=== PATIENT | female | born 1980 | race Caucasian/White ===

== ENCOUNTER 2018-07-18 01:23 | Outpatient (CLI) | payer BC, SELFPAY ==
--- NOTE | 2018-07-18 14:24 | DI.MAMMO_ITS ---
SYMPTOMS/DIAGNOSIS: RIGHT BREAST PALPABLE MASS 1 X 1 CM AT THE AREOLAR BORDER, 12 O'CLOCK, BORDERS ARE DEFINED, SMOOTH AND MASS IS MOBILE BILATERAL DIAGNOSTIC MAMMOGRAM: There is an area of breast asymmetry in the upper outer quadrant of the right breast with associated microcalcifications. Tomographic images show area of spiculation within this region. The skin appears unremarkable. There is a lymph node seen in the right axilla. No suspicious masses or microcalcifications are seen in the left breast. A right breast ultrasound was performed. In the upper outer quadrant at the 10 o'clock position 8 cm from the nipple, there is a lobulated hypoechoic mass measuring 3.4 x 1.9 x 4.2 cm. Internal echogenic foci are seen, which may reflect calcifications. There is some increased vascularity present. This corresponds to the asymmetric density on the mammogram. The palpable area of concern is at 12 o'clock 1 cm from the nipple. There is a hypoechoic vascular mass measuring 1.1 x 1.0 x 1.3 cm. It is just beneath the skin surface. There are lymph nodes seen in the right axilla. They are hypoechoic, the largest measures 1.7 cm. IMPRESSION: 1. A 4.2 cm hypoechoic lobulated mass with internal calcifications located in the upper outer quadrant at 10 o'clock 8 cm from the nipple. The finding is highly suspicious for malignancy. 2. Right axillary lymph nodes, the largest measuring 1.7 x 1.1 x 0.8 cm. 3. A 1.1 x 1.2 cm round hypoechoic subcutaneous mass in the right breast at the 12 o'clock position 1 cm from the nipple. This corresponds to the palpable abnormality. Category 5. Breast density D. The findings were discussed with the patient and the primary care team on the date of the examination.
== END 2018-07-18 01:43 ==
PROVIDERS: PCP Family Medicine; Visit Provider Nurse Practitioner Adult Health
DX: N63.11 Unspecified lump in the right breast, upper outer quadrant (principal); R59.0 Localized enlarged lymph nodes; N63.12 Unspecified lump in the right breast, upper inner quadrant
CPT/HCPCS: 76642; 77062; 77066; G0279

== ENCOUNTER 2018-09-09 06:31 | Inpatient (IN) | payer BC, SELFPAY ==
[2018-09-09] VITALS (9 sets, daily range): BP systolic 95–128; BP diastolic 62–80; PULSE 96–138; RESP 14–20; TEMP 36.6–39.5; O2SAT 95–100
--- NOTE | 2018-09-09 06:47 | ED.GENADUL_ITS ---
Discharge Plan Disposition Patient Disposition: [facility] INPATIENT Condition: Stable Discharge Details Chief Complaint: Fever Clinical Impression: Neutropenia Admit Date/Time: 09/09/18 08:25 Admit Provider: Gary Van Attending Provider: Gary Van Primary Care Provider: Chandan Young ED Provider: Jhon Russell Discharge Data Discharge Date/Time-TO BE ENTERED AT DEPARTURE: 09/09/18 09:40 Medical Decision Making <Jamal Rodriguez MD - Last Filed: 09/10/18 09:17> 38 yo female with hx of breast cancer who underwent her first chemotherapy 9 days ago comes in after she was up all night with subjective fevers and sweats, did not have a thermometer to check her temp at home. She is noted to have clammy skin on exam, fever here less than 100.4 orally. She is speaking in full sentences in no distress on exam. She has had a dry cough and intermittent nasuea with vomit along with diarrhea. No abdominal tenderness, no rashes per pt. She is noted to have a ulcer on the tip of her tongue she states has been present since chemotherapy and was told it was likely due to her chemotherapy. Given her chemotherapy she is at risk for neutropenic fever, will obtain cultures and lab work and also obtain chest xray. No severe headache or neck stiffness/menigismus so doubt animal chiropractor infection at this time pt remains stable, does have some red cells and few bacteria in her urine, she denies any symptoms of a uti however such as burning or frequency. Awaiting remainder of labs, flu test is negative. labs show ANC of 0.03 per the lab. She remains stable, still no fever here, cxr still pending. Will consult with oncology how they would like us to manage her neutropenia with only subjective fevers at home. Will sign her out pending oncology consult and xray results Differential Diagnosis neutropenic fever, viral illness, uti Medical Records Medical records reviewed: Yes I reviewed the patient's medical records. Lab Data Lab results reviewed: Yes I reviewed the patient's lab results. <Jhon Russell MD - Last Filed: 09/09/18 08:26> Received signout from Dr. Rodriguez. Patient remained stable and subjectively better with fluids, acetaminophen. She has mild hyponatremia, hypokalemia, mild worsening creatinine from 1.0-1.2. Following 1 L fluid, electrolyte supplementation, she clinically is improving. Neutropenia is present with ANC of 0.14. Chest x-ray unremarkable with left anterior chest port in place. Urine unremarkable Reviewed laboratories and clinical presentation with on-call oncology at [facility], Dr King. She recommends admission for observation with cefepime 2g q8h, medical management, and recheck labs in am. Lab Data Lab results reviewed: Yes I reviewed the patient's lab results. Laboratory Results - last 24 hr 09/09/18 09/09/18 09/09/18 06:55 07:06 07:06 Sodium 131 L Potassium 3.1 L Chloride 96 L Carbon Dioxide 23.1 Anion Gap 11.9 H BUN 7 Creatinine 1.23 H Estimated GFR/1.73 m2 49.40 Glucose 113 H Lactate Calcium 8.8 Magnesium 1.5 L Total Bilirubin 1.8 H AST 39 H ALT 76 Alkaline Phosphatase 89 Total Protein 7.6 Albumin 3.2 L Serum HCG, Qual Negative Urine Color Yellow Urine Clarity Sl cloudy Urine pH 5.5 Ur Specific [place] 1.020 Urine Protein 100 H Urine Ketones Negative Urine Blood Large H Urine Nitrite Negative Urine Bilirubin Negative Urine Urobilinogen 0.2 Ur Leukocyte Esterase Negative Urine RBC 20-50 H Urine WBC 3-5 Ur Epithelial Cells Rare Urine Crystals Moderate amorphous Urine Bacteria Few Urine Casts 10-20 coarsegranular Urine Mucus Moderate Urine Other Few renal Ur Culture Indicated? Yes Urine Glucose Negative 09/09/18 07:06 Sodium Potassium Chloride Carbon Dioxide Anion Gap BUN Creatinine Estimated GFR/1.73 m2 Glucose Lactate 1.0 Calcium Magnesium Total Bilirubin AST ALT Alkaline Phosphatase Total Protein Albumin Serum HCG, Qual Urine Color Urine Clarity Urine pH Ur Specific [place] Urine Protein Urine Ketones Urine Blood Urine Nitrite Urine Bilirubin Urine Urobilinogen Ur Leukocyte Esterase Urine RBC Urine WBC Ur Epithelial Cells Urine Crystals Urine Bacteria Urine Casts Urine Mucus Urine Other Ur Culture Indicated? Urine Glucose HPI <Jamal Rodriguez MD - Last Filed: 09/10/18 09:17> General Mode of arrival: ambulatory . Date/Time Provider Initiated Documentation: 09/09/18 06:32 . Limitations to Documentation: no limitations . Information obtained by: patient . History of Present Illness 38 year old F presents to the emergency department with the chief complaint of fevers/chills, described as moderate, Quality is described as burning, Patient started experiencing this day(s) (1) and it has been constant. No relieving factors improve symptom(s), No exacerbating factors reported . Patient notes cough. Patient did receive the following treatments prior to arrival, none Related Data Home Medications Medication Instructions Recorded Confirmed ibuprofen 800 mg PO TID PRN PRN #20 tab 06/14/17 09/09/18 rizatriptan [Maxalt] 5 mg PO ONCE #6 tab-cap MDD 10mg 09/14/17 09/09/18 triamcinolone acetonide 0.1 % 1 applic TOPICAL BID PRN #80 gm 06/08/18 09/09/18 topical cream ibuprofen [Advil] 200 mg PO PRN PRN 09/09/18 09/09/18 magnesium oxide 500 mg PO PRN PRN 09/09/18 09/09/18 Previous Rx's Medication Instructions Recorded ibuprofen 800 mg PO TID PRN PRN #20 tab 06/14/17 rizatriptan [Maxalt] 5 mg PO ONCE #6 tab-cap MDD 10mg 09/14/17 triamcinolone acetonide 0.1 % 1 applic TOPICAL BID PRN #80 gm 06/08/18 topical cream Allergies Allergy/AdvReac Type Severity Reaction Status Date / Time No Known Allergies Allergy Unverified 09/09/18 06:50 Review of Systems <Jamal Rodriguez MD - Last Filed: 09/10/18 09:17> Review of Systems All systems reviewed & are unremarkable except as noted in HPI and below Cardiovascular Denies chest pain and Denies dyspnea Respiratory Denies dyspnea Gastrointestinal Denies abdominal pain Musculoskeletal Denies joint swelling Integumentary/Breasts Denies rash PFSH <Jamal Rodriguez MD - Last Filed: 09/10/18 09:17> Family History Mother Mental disorder Father No problems noted. Sister No problems noted. Brother No problems noted. Grandfather No problems noted. Grandfather No problems noted. Grandmother No problems noted. Grandmother No problems noted. Social History Smoking/Tobacco Use Status: Never Drug use: Never Do you feel safe at home: Yes Do you feel safe in your relationship?: Yes Additional Social history: Patient is single and without children. Denies tobacco or ETOH use. Also denies any illicit drug use. Exam <Jamal Rodriguez MD - Last Filed: 09/10/18 09:17> Const General: no acute distress Orientation: alert HENMT Head: normal to inspection Ears: external ears normal General nose exam: external nose normal Mouth: moist mucous membranes Eyes General: appearance normal, both eyes and all related structures Neck Neck: normal visual inspection Resp Effort & Inspection: normal respiratory effort and able to speak in complete sentences Cardio Rate: tachycardic Skin General skin exam: no rashes or lesions noted Neuro General: alert and oriented x3 Extrem General: normal to inspection Psych Mental Status: mental status grossly normal Course <Jamal Rodriguez MD - Last Filed: 09/10/18 09:17> Lab/Test Results Lab/Test Results: 09/09/18 06:39 Blood Blood Culture - Pending 09/09/18 06:39 Blood Blood Culture - Pending Sign Out <Jamal Rodriguez MD - Last Filed: 09/10/18 09:17> Sign Out Data: Sign Out Comment: follow up on oncology recs and xray results Last updated by Jamal Rodriugez MD at 09/09/18 07:54
[2018-09-09 07:06] LABS: Bilirubin Negative (Negative); Blood Large (Negative); Clarity Sl Cloudy; Glucose Negative (Negative); Ketones Negative (Negative); Leukocyte Esterase Negative (Negative); Nitrite Negative (Negative); Urobilinogen 0.2 EU/dL (Up TO 0.2); pH 5.5 (5-8)
[2018-09-09 07:20] LABS: Abs Immature Grans 0.02 k/cumm (0.0-0.09); HCT 36.1 % (36.0-46.0); HGB 12.5 g/dL (12.0-15.5); Mean Corp. HGB Concentration 34.6 g/dL (32.0-36.0); Mean Corpuscular Hemoglobin 29.4 pg (27.0-33.0); Mean Corpuscular Volume 84.9 fL (80-95); Mean Platelet Volume 10.4 fL (8.0-11.0); Platelet Count 112 x1000/uL (130-400); RBC 4.25 m/cumm (4.00-5.20); RBC Distribution Width 11.7 % (11.7-14.6); White Blood Cell Count 2.37 k/cumm (4.4-10.8)
[2018-09-09 07:30] LABS: Bacteria Few HPF (Negative); Crystals Moderate Amorphous HPF (Negative); Epithelial Cells Rare HPF (Negative); Mucus Moderate (Negative); Other Cells Few Renal (Negative); RBC 20-50 (0-2)
[2018-09-09] MEDS: Normal Saline 1,000 ML 1000 ML IV (07:31)
[2018-09-09] MEDS: Ondansetron 4 MG/2 ML VIAL IVP ×2 (07:31→23:57)
[2018-09-09 07:32] LABS: ALT 76 U/L (12-78); AST 39 U/L (15-37); Albumin 3.2 g/dL (3.4-5.0); Alkaline Phosphatase 89 U/L (46-116); Anion Gap 11.9 mmol/L (3-11); BUN 7 mg/dL (7-18); Bilirubin, Total 1.8 mg/dL (0.2-1.0); CO2 23.1 mmol/L (21.0-32.0); CREATININE 1.23 mg/dL (0.55-1.02); Calcium 8.8 mg/dL (8.5-10.1); Chloride 96 mmol/L (98-107); Glucose 113 mg/dL (70-100); Magnesium 1.5 mg/dL (1.8-2.4); Potassium 3.1 mmol/L (3.5-5.1); Sodium 131 mmol/L (136-145); Total Protein 7.6 g/dL (6.4-8.2)
[2018-09-09 07:32] LABS: C & S Indicated? Yes
[2018-09-09 07:54] LABS: HCG Qual (Serum) Negative
--- NOTE | 2018-09-09 08:01 | DI.RAD_ITS ---
SYMPTOMS/DIAGNOSIS: COUGH, FEVER CHEST: Frontal and lateral views. The heart size and pulmonary vasculature are within normal limits. The tip of the indwelling central venous catheter is in good position in the superior vena cava. The lungs are clear. No effusions or pneumothoraces are identified. There is an S type scoliotic curvature of the thoracolumbar spine. IMPRESSION: No acute pulmonary process.
[2018-09-09] MEDS: MAGNESIUM SULFATE 1 GM/100 ML BAG IVPB (08:05)
[2018-09-09] MEDS: Potassium Chloride 20 MEQ TABCR 40 MEQ PO (08:06)
[2018-09-09 08:09] LABS: Absolute Lymphocyte Count 1.14 k/cumm (1.2-3.4); Absolute Monocyte Count 1.09 k/cumm (0.11-0.7); Absolute Neutrophil Count 0.14 k/cumm (1.2-6.7); Atypical Lymphocytes % 28
[2018-09-09 08:10] LABS: Diff Comment Manual Differential; RBC Morphology Normal
--- NOTE | 2018-09-09 08:48 | DI.VRAD_ITS ---
EXAM: XR Chest, 2 Views EXAM DATE/TIME: 09/09/2018 6:40 AM CLINICAL HISTORY: 38 years old, female; Signs and symptoms; Cough and fever TECHNIQUE: Imaging protocol: XR of the chest, 2 views. COMPARISON: No relevant prior studies available. FINDINGS: Tubes, catheters and devices: Left-sided indwelling catheter noted with tip in SVC Lungs: Unremarkable. No consolidation. Pleural space: Unremarkable. No pleural effusion. No pneumothorax. Heart/Mediastinum: Unremarkable. No cardiomegaly. Bones/joints: Unremarkable. IMPRESSION: No acute findings Dictated and Authenticated by: Veto Veras MD. Ordering:VANESA Berry MD
[2018-09-09] MEDS: CEFEPIME 2 GM in Normal Saline 100 ML IVPB ×3 (09:16→23:56)
[2018-09-09] MEDS: Normal Saline Flush 10 ML SYR IVP (09:47)
--- NOTE | 2018-09-09 09:47 | PHARADMIT ---
Admission Pharmacy Clinical Review NEUTRAPENIC FEVER ( day#9 post chemo at [facility] [place]) Code Status Full Code Current Weight Wgt-73.5 kg Renally Cleared and Narrow Therapeutic Index Meds CrCl~ 54.6 mL/min Meds-OK QTc Value / Action Taken NONE CURRENT BP Control, Fever BP-97/62 Tmax- 36.8C Electrolytes reviewed Na- 131 K+3.1 Mag-1.5 DVT Prophylaxis Lovenox 40mg Opiate Usage / Scheduled Bowel Regimen Ordered No Yes Plt/SCr for Heparin / Enoxaparin Plts- 112 SCr-1.23 INR for Warfarin na H/H stable, WBC/Bands H&H- 102.5/36.1 WBC- 2.37 ANC- 0.14 Antibiotic appropriateness Cefepime Cultures and Sensitivities Blood, Urine -pending Flu-neg Surgical ABX d/c within 24 hr NA DM control / Insulin Dosing BG- 113 Heart Failure (Check EF%) (CARLA's, B-Block, Diuretics) none IV to PO Switch No Home Meds Reviewed Yes Home Meds Not Ordered Ibuprofen, TAC, Maxlt MagOx Comments
[2018-09-09] MEDS: Enoxaparin 40 MG/0.4 ML SYR SC (10:16)
[2018-09-09] MEDS: Normal Saline 1,000 ML 125 ML IV ×2 (10:16→18:39)
--- NOTE | 2018-09-09 13:10 | W.PM.HP.N ---
Date of service: 09/09/18 Time of Service: 13:12 Assessment and Plan (1) Neutropenic fever: Current visit: Yes Status: Acute Although afebrile currently, history concordant with fevers and chills at home, with neutropenia noted by labs (ANC 0.14). Port examined and without obvious source of infection. Urinalysis and CXR appear unremarkable. Patient also with reported diarrhea that may be related to recent initiation of chemotherapy. Monitor blood cultures and check stool studies. Will initiate Cefepime, hydrate, and monitor closely with daily labs. Discussed with Oncology at [facility] [place] who recommends holding off on G-CSF for now. (2) HER2-positive carcinoma of right breast: Current visit: Yes Status: Acute Reported ER +/[place] +/HER2 + right sided Bread Ca, s/p lumpectomy with + LN's. Currently received 1st cycle of combination Taxotere, Carboplatin, Herceptin, and Perjeta for a planned 6 cycles of chemotherapy. Follows at [facility] [place]. (3) DVT prophylaxis: Current visit: Yes Status: Acute SC Lovenox. History of Present Illness Chief Complaint: Fever, Chills Narrative: Very pleasant but unfortunate 38-year-old woman with recently diagnosed breast cancer, initiated on chemotherapy 9 days ago, admitted from [facility] Emergency Department on 09/09 with a diagnosis of neutropenic fever. Ms. Cuello has a past medical history significant for a recently diagnosed ER +/[place] +/HER 2 + right-sided breast CA, with self-reported lumpectomy and lymph node dissection with positive lymph nodes. The patient has since had a port placed, and has initiated chemotherapy with Taxotere, Carboplatin, Herceptin, and Perjeta every 3 weeks for planned 6 cycles. She was initiated on chemotherapy 9 days ago. She reports onset of subjective fevers overnight, with significant distress that included diffuse diaphoresis and subjective chills. She also reports concurrent diarrhea that started approximately 2 days ago. Upon presentation to the ED she was not noted to be febrile, but was neutropenic on labs. Her CXR and urinalysis were negative, and no focal source of infection was found. Influenza was also checked and negative. She was admitted for further evaluation and treatment. Review of Systems Review of Systems All systems reviewed & are unremarkable except as noted in HPI and below PFSH Family History Mother Mental disorder Father No problems noted. Sister No problems noted. Brother No problems noted. Grandfather No problems noted. Grandfather No problems noted. Grandmother No problems noted. Grandmother No problems noted. Social History Smoking/Tobacco Use Status: Never Drug use: Never Do you feel safe at home: Yes Do you feel safe in your relationship?: Yes Additional Social history: Patient is single and without children. Denies tobacco or ETOH use. Also denies any illicit drug use. Meds Home Medications Medication Instructions Recorded Confirmed Type ibuprofen 800 mg PO TID PRN PRN #20 tab 06/14/17 09/09/18 Rx rizatriptan [Maxalt] 5 mg PO ONCE #6 tab-cap MDD 10mg 09/14/17 09/09/18 Rx triamcinolone acetonide 0.1 % 1 applic TOPICAL BID PRN #80 gm 06/08/18 09/09/18 Rx topical cream ibuprofen [Advil] 200 mg PO PRN PRN 09/09/18 09/09/18 History magnesium oxide 500 mg PO PRN PRN 09/09/18 09/09/18 History Allergies Allergy/AdvReac Type Severity Reaction Status Date / Time No Known Allergies Allergy Unverified 09/09/18 06:50 Exam Narrative Exam Narrative: General: Patient appears uncomfortable and ill, but not toxic. AAOX3. Neck: Supple Skin: Port noted left upper chest. Minimal surrounding edema with steri-strips still in place, but no evidence of induration, underlying fluctuance, or surrounding cellulitic changes. No drainage. CV: Regular, tachycardic, S1S2, No rubs, murmurs, or gallops. Pulmonary: Clear to auscultation bilaterally, no crackles, wheezing, or rhonchi Abdomen: + Bowel Sounds, soft, nontender, nondistended Vascular: No lower extremity edema Neurologic: CN II-XII grossly intact. No focal deficits. Psych: Normal mood and affect. Results Imaging Chest x-ray: report reviewed and image reviewed Additional studies: Exam(s) EXAM: XR Chest, 2 Views EXAM DATE/TIME: 09/09/2018 6:40 AM CLINICAL HISTORY: 38 years old, female; Signs and symptoms; Cough and fever TECHNIQUE: Imaging protocol: XR of the chest, 2 views. COMPARISON: No relevant prior studies available. FINDINGS: Tubes, catheters and devices: Left-sided indwelling catheter noted with tip in SVC Lungs: Unremarkable. No consolidation. Pleural space: Unremarkable. No pleural effusion. No pneumothorax. Heart/Mediastinum: Unremarkable. No cardiomegaly. Bones/joints: Unremarkable. IMPRESSION: No acute findings Labs : 09/09/18 07:06 09/09/18 07:06 Laboratory Results - last 24 hr 09/09/18 09/09/18 09/09/18 06:55 07:06 07:06 WBC 2.37 L RBC 4.25 Hgb 12.5 Hct 36.1 MCV 84.9 MCH 29.4 MCHC 34.6 RDW 11.7 Plt Count 112 L MPV 10.4 Immature Gran % See Differential Neutrophils % 1.0 Band Neutrophils % 5.0 Lymphocytes % 20.0 Atypical Lymphs % 28 Monocytes % 46.0 Eosinophils % 0.0 Basophils % 0.0 Absolute Neutrophils 0.14 L* Absolute Lymphocytes 1.14 L Absolute Monocytes 1.09 H Absolute Eosinophils 0.00 Absolute Basophils 0.00 Differential Comment Manual differential RBC Morphology Normal Sodium 131 L Potassium 3.1 L Chloride 96 L Carbon Dioxide 23.1 Anion Gap 11.9 H BUN 7 Creatinine 1.23 H Estimated GFR/1.73 m2 49.40 Glucose 113 H Lactate Calcium 8.8 Magnesium 1.5 L Total Bilirubin 1.8 H AST 39 H ALT 76 Alkaline Phosphatase 89 Total Protein 7.6 Albumin 3.2 L Serum HCG, Qual Urine Color Yellow Urine Clarity Sl cloudy Urine pH 5.5 Ur Specific [place] 1.020 Urine Protein 100 H Urine Ketones Negative Urine Blood Large H Urine Nitrite Negative Urine Bilirubin Negative Urine Urobilinogen 0.2 Ur Leukocyte Esterase Negative Urine RBC 20-50 H Urine WBC 3-5 Ur Epithelial Cells Rare Urine Crystals Moderate amorphous Urine Bacteria Few Urine Casts 10-20 coarsegranular Urine Mucus Moderate Urine Other Few renal Ur Culture Indicated? Yes Urine Glucose Negative 09/09/18 09/09/18 07:06 07:06 WBC RBC Hgb Hct MCV MCH MCHC RDW Plt Count MPV Immature Gran % Neutrophils % Band Neutrophils % Lymphocytes % Atypical Lymphs % Monocytes % Eosinophils % Basophils % Absolute Neutrophils Absolute Lymphocytes Absolute Monocytes Absolute Eosinophils Absolute Basophils Differential Comment RBC Morphology Sodium Potassium Chloride Carbon Dioxide Anion Gap BUN Creatinine Estimated GFR/1.73 m2 Glucose Lactate 1.0 Calcium Magnesium Total Bilirubin AST ALT Alkaline Phosphatase Total Protein Albumin Serum HCG, Qual Negative Urine Color Urine Clarity Urine pH Ur Specific [place] Urine Protein Urine Ketones Urine Blood Urine Nitrite Urine Bilirubin Urine Urobilinogen Ur Leukocyte Esterase Urine RBC Urine WBC Ur Epithelial Cells Urine Crystals Urine Bacteria Urine Casts Urine Mucus Urine Other Ur Culture Indicated? Urine Glucose Rapid Influenza A & B Final 09/09/18-719 RESULT NEGATIVE FOR FLU A AND B ANTIGENS. Last Vital Signs Temp 37 C 09/09/18 10:01 Pulse 114 H 09/09/18 10:01 Resp 18 09/09/18 10:01 BP 117/76 09/09/18 10:01 Pulse Ox 99 09/09/18 10:01
--- NOTE | 2018-09-09 13:13 | HPE_ITS ---
Date of service: 09/09/18 Time of Service: 13:12 Assessment and Plan (1) Neutropenic fever: Current visit: Yes Status: Acute Although afebrile currently, history concordant with fevers and chills at home, with neutropenia noted by labs (ANC 0.14). Port examined and without obvious source of infection. Urinalysis and CXR appear unremarkable. Patient also with reported diarrhea that may be related to recent initiation of chemotherapy. Monitor blood cultures and check stool studies. Will initiate Cefepime, hydrate, and monitor closely with daily labs. Discussed with Oncology at [facility] who recommends holding off on G-CSF for now. (2) HER2-positive carcinoma of right breast: Current visit: Yes Status: Acute Reported ER +/GA +/HER2 + right sided Bread Ca, s/p lumpectomy with + L N's. Currently received 1st cycle of combination Taxotere, Carboplatin, Herceptin, and Perjeta for a planned 6 cycles of chemotherapy. Follows at [facility]. (3) DVT prophylaxis: Current visit: Yes Status: Acute SC Lovenox. History of Present Illness Chief Complaint: Fever, Chills Narrative: Very pleasant but unfortunate 38-year-old woman with recently diagnosed breast cancer, initiated on chemotherapy 9 days ago, admitted from [facility] Emergency Department on 09/09 with a diagnosis of neutropenic fever. Ms. Cuello has a past medical history significant for a recently diagnosed ER +/GA +/HER 2 + right-sided breast CA, with self-reported lumpectomy and lymph node dissection with positive lymph nodes. The patient has since had a port placed, and has initiated chemotherapy with Taxotere, Carboplatin, Herceptin, and Perjeta every 3 weeks for planned 6 cycles. She was initiated on chemotherapy 9 days ago. She reports onset of subjective fevers overnight, with significant distress that included diffuse diaphoresis and subjective chills. She also reports concurrent diarrhea that started approximately 2 days ago. Upon presentation to the ED she was not noted to be febrile, but was neutropenic on labs. Her CXR and urinalysis were negative, and no focal source of infection was found. Influenza was also checked and negative. She was admitted for further evaluation and treatment. Review of Systems Review of Systems All systems reviewed & are unremarkable except as noted in HPI and below PFSH Family History Mother Mental disorder Father No problems noted. Sister No problems noted. Brother No problems noted. Grandfather No problems noted. Grandfather No problems noted. Grandmother No problems noted. Grandmother No problems noted. Social History Smoking/Tobacco Use Status: Never Drug use: Never Do you feel safe at home: Yes Do you feel safe in your relationship?: Yes Additional Social history: Patient is single and without children. Denies tobacco or ETOH use. Also denies any illicit drug use. Meds Home Medications Medication Instructions Recorded Confirmed Type ibuprofen 800 mg PO TID PRN PRN #20 tab 06/14/17 09/09/18 Rx rizatriptan [Maxalt] 5 mg PO ONCE #6 tab-cap MDD 10mg 09/14/17 09/09/18 Rx triamcinolone acetonide 0.1 % 1 applic TOPICAL BID PRN #80 gm 06/08/18 09/09/18 Rx topical cream ibuprofen [Advil] 200 mg PO PRN PRN 09/09/18 09/09/18 History magnesium oxide 500 mg PO PRN PRN 09/09/18 09/09/18 History Allergies Allergy/AdvReac Type Severity Reaction Status Date / Time No Known Allergies Allergy Unverified 09/09/18 06:50 Exam Narrative Exam Narrative: General: Patient appears uncomfortable and ill, but not toxic. AAOX3. Neck: Supple Skin: Port noted left upper chest. Minimal surrounding edema with steri-strips still in place, but no evidence of induration, underlying fluctuance, or surrounding cellulitic changes. No drainage. CV: Regular, tachycardic, S1S2, No rubs, murmurs, or gallops. Pulmonary: Clear to auscultation bilaterally, no crackles, wheezing, or rhonchi Abdomen: + Bowel Sounds, soft, nontender, nondistended Vascular: No lower extremity edema Neurologic: CN II-XII grossly intact. No focal deficits. Psych: Normal mood and affect. Results Imaging Chest x-ray: report reviewed and image reviewed Additional studies: Exam(s) EXAM: XR Chest, 2 Views EXAM DATE/TIME: 09/09/2018 6:40 AM CLINICAL HISTORY: 38 years old, female; Signs and symptoms; Cough and fever TECHNIQUE: Imaging protocol: XR of the chest, 2 views. COMPARISON: No relevant prior studies available. FINDINGS: Tubes, catheters and devices: Left-sided indwelling catheter noted with tip in SVC Lungs: Unremarkable. No consolidation. Pleural space: Unremarkable. No pleural effusion. No pneumothorax. Heart/Mediastinum: Unremarkable. No cardiomegaly. Bones/joints: Unremarkable. IMPRESSION: No acute findings Labs : 09/09/18 07:06 09/09/18 07:06 Laboratory Results - last 24 hr 09/09/18 09/09/18 09/09/18 06:55 07:06 07:06 WBC 2.37 L RBC 4.25 Hgb 12.5 Hct 36.1 MCV 84.9 MCH 29.4 MCHC 34.6 RDW 11.7 Plt Count 112 L MPV 10.4 Immature Gran % See Differential Neutrophils % 1.0 Band Neutrophils % 5.0 Lymphocytes % 20.0 Atypical Lymphs % 28 Monocytes % 46.0 Eosinophils % 0.0 Basophils % 0.0 Absolute Neutrophils 0.14 L* Absolute Lymphocytes 1.14 L Absolute Monocytes 1.09 H Absolute Eosinophils 0.00 Absolute Basophils 0.00 Differential Comment Manual differential RBC Morphology Normal Sodium 131 L Potassium 3.1 L Chloride 96 L Carbon Dioxide 23.1 Anion Gap 11.9 H BUN 7 Creatinine 1.23 H Estimated GFR/1.73 m2 49.40 Glucose 113 H Lactate Calcium 8.8 Magnesium 1.5 L Total Bilirubin 1.8 H AST 39 H ALT 76 Alkaline Phosphatase 89 Total Protein 7.6 Albumin 3.2 L Serum HCG, Qual Urine Color Yellow Urine Clarity Sl cloudy Urine pH 5.5 Ur Specific [place] 1.020 Urine Protein 100 H Urine Ketones Negative Urine Blood Large H Urine Nitrite Negative Urine Bilirubin Negative Urine Urobilinogen 0.2 Ur Leukocyte Esterase Negative Urine RBC 20-50 H Urine WBC 3-5 Ur Epithelial Cells Rare Urine Crystals Moderate amorphous Urine Bacteria Few Urine Casts 10-20 coarsegranular Urine Mucus Moderate Urine Other Few renal Ur Culture Indicated? Yes Urine Glucose Negative 09/09/18 09/09/18 07:06 07:06 WBC RBC Hgb Hct MCV MCH MCHC RDW Plt Count MPV Immature Gran % Neutrophils % Band Neutrophils % Lymphocytes % Atypical Lymphs % Monocytes % Eosinophils % Basophils % Absolute Neutrophils Absolute Lymphocytes Absolute Monocytes Absolute Eosinophils Absolute Basophils Differential Comment RBC Morphology Sodium Potassium Chloride Carbon Dioxide Anion Gap BUN Creatinine Estimated GFR/1.73 m2 Glucose Lactate 1.0 Calcium Magnesium Total Bilirubin AST ALT Alkaline Phosphatase Total Protein Albumin Serum HCG, Qual Negative Urine Color Urine Clarity Urine pH Ur Specific [place] Urine Protein Urine Ketones Urine Blood Urine Nitrite Urine Bilirubin Urine Urobilinogen Ur Leukocyte Esterase Urine RBC Urine WBC Ur Epithelial Cells Urine Crystals Urine Bacteria Urine Casts Urine Mucus Urine Other Ur Culture Indicated? Urine Glucose Rapid Influenza A & B Final 09/09/18-719 RESULT NEGATIVE FOR FLU A AND B ANTIGENS. Last Vital Signs Temp 37 C 09/09/18 10:01 Pulse 114 H 09/09/18 10:01 Resp 18 09/09/18 10:01 BP 117/76 09/09/18 10:01 Pulse Ox 99 09/09/18 10:01
[2018-09-09] MEDS: Ibuprofen 600 MG TAB PO ×2 (16:04→23:57)
[2018-09-10 00:57] VITALS: TEMP 37
[2018-09-10] MEDS: Normal Saline 1,000 ML 125 ML IV ×3 (02:55→20:20)
[2018-09-10 07:14] LABS: HCT 32.5 % (36.0-46.0); HGB 10.9 g/dL (12.0-15.5); Mean Corp. HGB Concentration 33.5 g/dL (32.0-36.0); Mean Corpuscular Hemoglobin 29.1 pg (27.0-33.0); Mean Corpuscular Volume 86.7 fL (80-95); RBC 3.75 m/cumm (4.00-5.20); RBC Distribution Width 12.2 % (11.7-14.6); White Blood Cell Count 2.63 k/cumm (4.4-10.8)
[2018-09-10 07:33] LABS: Anion Gap 6.3 mmol/L (3-11); BUN 7 mg/dL (7-18); CO2 25.7 mmol/L (21.0-32.0); CREATININE 0.97 mg/dL (0.55-1.02); Calcium 8.5 mg/dL (8.5-10.1); Chloride 106 mmol/L (98-107); Glucose 105 mg/dL (70-100); Magnesium 1.8 mg/dL (1.8-2.4); Potassium 3.6 mmol/L (3.5-5.1); Sodium 138 mmol/L (136-145)
[2018-09-10 07:54] LABS: Absolute Neutrophil Count 0.79 k/cumm (1.2-6.7); Platelet Count 101 x1000/uL (130-400)
[2018-09-10 08:02] LABS: Absolute Eosinophil Count 0.03 k/cumm (0.0-0.7); Absolute Lymphocyte Count 0.95 k/cumm (1.2-3.4); Absolute Monocyte Count 0.87 k/cumm (0.11-0.7); Atypical Lymphocytes % 6
[2018-09-10 08:03] LABS: Diff Comment Manual Differential; RBC Morphology Normal
[2018-09-10] MEDS: Ondansetron 4 MG/2 ML VIAL IVP ×3 (08:56→21:12)
[2018-09-10] MEDS: Ibuprofen 600 MG TAB PO (08:57)
[2018-09-10] MEDS: Normal Saline Flush 10 ML SYR IVP ×2 (08:58→21:13)
[2018-09-10] MEDS: CEFEPIME 2 GM in Normal Saline 100 ML IVPB ×3 (09:02→23:14)
[2018-09-10 09:07] VITALS: BP 113/74; PULSE 102; RESP 17; TEMP 37.1; O2SAT 100
[2018-09-10] MEDS: Loperamide 2 MG CAP PO ×4 (09:13→22:00)
--- NOTE | 2018-09-10 09:46 | PDOC.CMIN ---
- If Service Date Differs Date of service: 09/10/18 Time of Service: 09:47 Care Management Initial Assess REASON FOR HOSPITALIZATION:: Neutropenic fever PAST MEDICAL HISTORY/PAST SURGICAL HISTORY:: HER2-positive carcinoma of the right breast. lumpectomy with positive lymph nodes PREVIOUS FUNCTIONAL STATUS/SOCIAL/FAMILY SUPPORTS:: Suzi lives alone with her 2 cats in a single family home. She works at [employer] and is completely independent with ADLs, driving etc. She has 2 siblings and a father who are all very supportive and helpful. CURRENT FUNCTIONAL STATUS:: Suzi was sitting up in bed visiting with her Dad. She says she feels much better and wants to be discharged. She did not sleep well last night and just wants to be home with her cats. ADVANCE DIRECTIVES:: None on file and is not interested in completing the forms at this time. Has patient been provided with information about the portal?: Yes Did the patient sign up for the portal?: No CODE STATUS:: Full Code INSURANCE COVERAGE / FINANCIAL ISSUES:: BS CURRENT HOME/COMMUNITY SERVICES/EQUIPMENT:: None currently PRIMARY CARE PHYSICIAN:: Chandan Young MD POTENTIAL DISCHARGE NEEDS:: None identified at this time. PATIENT/FAMILY EDUCATION NEEDS:: Discharge plan, limitations, follow up plan of care, Ask Me [employer]. ANTICIPATED BARRIERS TO DISCHARGE:: None identified. TRANSPORTATION:: Via private automobile with family when ready for discharge PLAN:: Suzi is currently afebrile and no longer has nausea or vomitting. She wishes to be discharged home. She will not neeed any services at this time. Her father will transport her in a private automobile. CM will continue to provide support to patient, family, care team and discharge planning.
[2018-09-10] MEDS: Magnesium Oxide 400 MG TAB PO (09:52)
[2018-09-10] MEDS: Potassium Chloride 20 MEQ TABCR 40 MEQ PO (09:52)
--- NOTE | 2018-09-10 10:12 | INITIAL_ITS ---
- If Service Date Differs Date of service: 09/10/18 Time of Service: 09:47 Care Management Initial Assess REASON FOR HOSPITALIZATION:: Neutropenic fever PAST MEDICAL HISTORY/PAST SURGICAL HISTORY:: HER2-positive carcinoma of the right breast. lumpectomy with positive lymph nodes PREVIOUS FUNCTIONAL STATUS/SOCIAL/FAMILY SUPPORTS:: Suzi lives alone with her 2 cats in a single family home. She works at [employer] and is co mpletely independent with ADLs, driving etc. She has 2 siblings and a father who are all very supportive and helpful. CURRENT FUNCTIONAL STATUS:: Suzi was sitting up in bed visiting with her Dad. She says she feels much better and wants to be discharged. She did not sleep well last night and just wants to be home with her cats. ADVANCE DIRECTIVES:: None on file and is not interested in completing the forms at this time. Has patient been provided with information about the portal?: Yes Did the patient sign up for the portal?: No CODE STATUS:: Full Code INSURANCE COVERAGE / FINANCIAL ISSUES:: BS CURRENT HOME/COMMUNITY SERVICES/EQUIPMENT:: None currently PRIMARY CARE PHYSICIAN:: Chandan Young MD POTENTIAL DISCHARGE NEEDS:: None identified at this time. PATIENT/FAMILY EDUCATION NEEDS:: Discharge plan, limitations, follow up plan of care, Ask Me Three. ANTICIPATED BARRIERS TO DISCHARGE:: None identified. TRANSPORTATION:: Via private automobile with family when ready for discharge PLAN:: Suzi is currently afebrile and no longer has nausea or vomitting. She wishes to be discharged home. She will not neeed any services at this time. Her father will transport her in a private automobile. CM will continue to provide support to patient, family, care team and discharge planning.
[2018-09-10 13:30] VITALS: BP 119/82; PULSE 100; RESP 18; TEMP 36.3; O2SAT 100
--- NOTE | 2018-09-10 14:06 | PHARADMIT ---
Addendum entered by Aylin Dudley 09/11/18 17:04: Pharmacy Note Subjective c/o mouth sores Objective Afebrile, liquid stool, lytes good, ANC 1.18, Plt 96 Micro urine: E.Coli sensitive to Levaquin Micro blood: no growth x48h C.Diff negative, flu negative Assessment diarrhea is ADR from Chemo Magic mouthwash started Cefepime changed to oral Levaquin and will continue x14 days per Oncology source of infection unknown Plan MD would like patient to be afebrile x48h and ANC>1.5 before discharge Watch Platelets Original Note: Admission Pharmacy Clinical Review NEUTROPENIC FEVER Code Status Full Code Current Weight 73.482 kg Renally Cleared and Narrow Therapeutic Index Meds CrCl~69ml/min QTc Value / Action Taken BP Control, Fever BP 119/82 Afebrile now (Tmax 39.5 yesterday) Electrolytes reviewed Na++ 138, K+ 3.6, Mag 1.8 Kdur 40meq po x1 DVT Prophylaxis Lovenox 40mg-pt refused today's dose Opiate Usage / Scheduled Bowel Regimen Ordered none Plt/SCr for Heparin / Enoxaparin Plt 101 SCr 0.97 INR for Warfarin H/H stable, WBC/Bands H/H 10.9/32.5 WBC 2.63 ANC 0.79 (improved) Antibiotic appropriateness Cefepime 2gram IV q8h Cultures and Sensitivities BC no growth x24h Urine: E.Coli >100K Flu negative Surgical ABX d/c within 24 hr DM control / Insulin Dosing BG 105 Heart Failure (Check EF%) (CARLA's, B-Block, Diuretics) none IV to PO Switch Home Meds Reviewed Home Meds Not Ordered Magox, Maxalt, triamcinolone topical Comments s/p Chemo 9 days ago-presented w/fever, given Ibuprofen Source of infection initially unknown, port site reportedly looks clean, + urine culture this morning Chest xray negative
[2018-09-10 14:23] LABS: Path Consult (Tech Order) C
--- NOTE | 2018-09-10 14:33 | W.PM.PROGNOT ---
Date of Service Date of service: 09/10/18 Time of Service: 14:33 Assessment and Plan (1) Neutropenic fever: Current visit: Yes Status: Acute Initially with severe neutropenia noted by labs (ANC 0.14), now improved but still <1000. Port examined and without obvious source of infection. Urinalysis and CXR appear unremarkable. Patient also with reported diarrhea that may be related to recent initiation of chemotherapy, with negative C.Diff and + Fecal Leukocytes (cultues pending). Continue to monitor blood cultures. Continue Cefepime, now day #2. Patient requesting to return home as she feels improved - discussed importance of current treatment. Will plan on discharge at minimum with >24 hours afebrile (48 hours preferable) with ANC >1000 (1500 preferable). If no source is identified will plan on Levofloxacin for a planned 14 day course. This plan was discussed with [facility]cology who was in agreement. (2) HER2-positive carcinoma of right breast: Current visit: Yes Status: Acute Reported ER +/[place] +/HER2 + right sided Bread Ca, s/p lumpectomy with + LN's. Currently received 1st cycle of combination Taxotere, Carboplatin, Herceptin, and Perjeta for a planned 6 cycles of chemotherapy. Follows at [facility]. (3) DVT prophylaxis: Current visit: Yes Status: Acute SC Lovenox. Subjective Interval history since last seen: Very pleasant but unfortunate 38-year-old woman with recently diagnosed breast cancer, initiated on chemotherapy 9 days ago, admitted from [facility] Emergency Department on 09/09 with a diagnosis of neutropenic fever. Ms. Cuello has a past medical history significant for a recently diagnosed ER +/TN +/HER 2 + right-sided breast CA, with self-reported lumpectomy and lymph node dissection with positive lymph nodes. The patient has since had a port placed, and has initiated chemotherapy with Taxotere, Carboplatin, Herceptin, and Perjeta every 3 weeks for planned total of 6 cycles. She was initiated on chemotherapy 9 days prior to admission. The patient reported onset of subjective fevers overnight prior to her presentation, with significant distress that included diffuse diaphoresis and subjective chills. She also reports concurrent diarrhea that started approximately 2 days previously. Upon presentation to the ED she was not noted to be febrile, but was neutropenic on labs. Her CXR and urinalysis were negative, and no focal source of infection was found. Influenza was also checked and negative. She was admitted for further evaluation and treatment. Since the time of admission Ms. Cuello became febrile, with a TMax of 39.5 yesterday afternoon, but with a favorable fever curve since that time. Her ANC remains low, but she is no longer severely neutropenic. Other results include negative C.Diff, negative blood cultures, but with + Fecal Leukocytes. No other events reported. Remains afebrile. Exam Narrative Exam Narrative: General: Patient appears uncomfortable and ill, but not toxic. AAOX3. Neck: Supple Skin: Port noted left upper chest. Minimal surrounding edema with steri-strips still in place, but no evidence of induration, underlying fluctuance, or surrounding cellulitic changes. No drainage. CV: Regular, tachycardic, S1S2, No rubs, murmurs, or gallops. Pulmonary: Clear to auscultation bilaterally, no crackles, wheezing, or rhonchi Abdomen: + Bowel Sounds, soft, nontender, nondistended Vascular: No lower extremity edema Neurologic: CN II-XII grossly intact. No focal deficits. Psych: Normal mood and affect. Objective Objective Clinical Data: Abnormal lab results 09/10/18 09/10/18 Range/Units 06:50 06:50 WBC 2.63 L (4.4-10.8) k/cumm RBC 3.75 L (4.00-5.20) m/cumm Hgb 10.9 L (12.0-15.5) g/dL Hct 32.5 L (36.0-46.0) % Plt Count 101 L (130-400) x1000/uL Absolute Neutrophils 0.79 L (1.2-6.7) k/cumm Absolute Lymphocytes 0.95 L (1.2-3.4) k/cumm Absolute Monocytes 0.87 H (0.11-0.7) k/cumm Glucose 105 H (70-100) mg/dL Vital Signs Temperature 36.3 C L 09/10/18 13:30 Temperature Source Tympanic 09/10/18 13:30 Pulse 100 H 09/10/18 13:30 Pulse Rhythm Regular 09/10/18 09:00 Respiratory Rate 18 09/10/18 13:30 Respiratory Effort Non-Labored 09/10/18 09:00 Respiratory Depth Normal 09/10/18 09:00 Respiratory Pattern Normal 09/10/18 09:00 Blood Pressure 119/82 09/10/18 13:30 Blood Pressure Position Sitting 09/09/18 06:39 Pulse Oximetry 100 09/10/18 13:30 Oxygen Delivery Method Room Air 09/10/18 13:30 Oxygen Flow Rate 0 09/10/18 13:30 Pain Level 0 09/10/18 09:54 Comment 09/09/18 23:15 Intake & Output 09/09/18 09/10/18 09/10/18 23:59 11:59 23:59 Intake Total 1340 / 2540 2139.5 / 2139.5 Output Total 500 / 500 Balance 840 / 2040 2139.5 / 2139.5 Intake: IV 1100 / 2300 2139.5 / 2139.5 Oral 240 / 240 Output: Urine 500 / 500 Other: Urine Color Light Maureen Urine Appearance Clear Comment pt voiding independently in the toilet Stool Size Moderate Moderate Stool Characteristics Soft Liquid Brown Brown Voiding Methods Toilet Toilet Laboratory Results WBC 2.63 k/cumm (4.4-10.8) L 09/10/18 06:50 RBC 3.75 m/cumm (4.00-5.20) L 09/10/18 06:50 Hgb 10.9 g/dL (12.0-15.5) L 09/10/18 06:50 Hct 32.5 % (36.0-46.0) L 09/10/18 06:50 MCV 86.7 fL (80-95) 09/10/18 06:50 MCH 29.1 pg (27.0-33.0) 09/10/18 06:50 MCHC 33.5 g/dL (32.0-36.0) 09/10/18 06:50 RDW 12.2 % (11.7-14.6) 09/10/18 06:50 Plt Count 101 x1000/uL (130-400) L 09/10/18 06:50 MPV 10.0 fL (8.0-11.0) 09/10/18 06:50 Immature Gran % 0.0 09/10/18 06:50 Neutrophils % 25.0 09/10/18 06:50 Band Neutrophils % 5.0 % 09/10/18 06:50 Lymphocytes % 30.0 09/10/18 06:50 Atypical Lymphs % 6 09/10/18 06:50 Monocytes % 33.0 09/10/18 06:50 Eosinophils % 1.0 09/10/18 06:50 Basophils % 0.0 09/10/18 06:50 Absolute Neutrophils 0.79 k/cumm (1.2-6.7) L 09/10/18 06:50 Absolute Lymphocytes 0.95 k/cumm (1.2-3.4) L 09/10/18 06:50 Absolute Monocytes 0.87 k/cumm (0.11-0.7) H 09/10/18 06:50 Absolute Eosinophils 0.03 k/cumm (0.0-0.7) 09/10/18 06:50 Absolute Basophils 0.00 k/cumm (0.0-0.2) 09/10/18 06:50 Differential Comment Manual differential 09/10/18 06:50 RBC Morphology Normal 09/10/18 06:50 Sodium 138 mmol/L (136-145) 09/10/18 06:50 Potassium 3.6 mmol/L (3.5-5.1) 09/10/18 06:50 Chloride 106 mmol/L (98-107) 09/10/18 06:50 Carbon Dioxide 25.7 mmol/L (21.0-32.0) 09/10/18 06:50 Anion Gap 6.3 mmol/L (3-11) 09/10/18 06:50 BUN 7 mg/dL (7-18) 09/10/18 06:50 Creatinine 0.97 mg/dL (0.55-1.02) 09/10/18 06:50 Estimated GFR/1.73 m2 >= 60.00 (mL/min/1.73m2) 09/10/18 06:50 Glucose 105 mg/dL (70-100) H 09/10/18 06:50 Lactate 1.0 mmol/l (0.6-1.4) 09/09/18 07:06 Calcium 8.5 mg/dL (8.5-10.1) 09/10/18 06:50 Magnesium 1.8 mg/dL (1.8-2.4) 09/10/18 06:50 Total Bilirubin 1.8 mg/dL (0.2-1.0) H 09/09/18 07:06 AST 39 U/L (15-37) H 09/09/18 07:06 ALT 76 U/L (12-78) 09/09/18 07:06 Alkaline Phosphatase 89 U/L (46-116) 09/09/18 07:06 Total Protein 7.6 g/dL (6.4-8.2) 09/09/18 07:06 Albumin 3.2 g/dL (3.4-5.0) L 09/09/18 07:06 Serum HCG, Qual Negative 09/09/18 07:06 Urine Color Yellow (Yellow) 09/09/18 06:55 Urine Clarity Sl cloudy 09/09/18 06:55 Urine pH 5.5 (5-8) 09/09/18 06:55 Ur Specific [place] 1.020 (1.005-1.025) 09/09/18 06:55 Urine Protein 100 mg/dL (Negative) H 09/09/18 06:55 Urine Ketones Negative mg/dL (Negative) 09/09/18 06:55 Urine Blood Large (Negative) H 09/09/18 06:55 Urine Nitrite Negative (Negative) 09/09/18 06:55 Urine Bilirubin Negative (Negative) 09/09/18 06:55 Urine Urobilinogen 0.2 EU/dL (Up TO 0.2) 09/09/18 06:55 Ur Leukocyte Esterase Negative (Negative) 09/09/18 06:55 Urine RBC 20-50 (0-2) H 09/09/18 06:55 Urine WBC 3-5 HPF (0-5) 09/09/18 06:55 Ur Epithelial Cells Rare HPF (Negative) 09/09/18 06:55 Urine Crystals Moderate amorphous HPF (Negative) 09/09/18 06:55 Urine Bacteria Few HPF (Negative) 09/09/18 06:55 Urine Casts 10-20 coarsegranular LPF (Negative) 09/09/18 06:55 Urine Mucus Moderate (Negative) 09/09/18 06:55 Urine Other Few renal (Negative) 09/09/18 06:55 Ur Culture Indicated? Yes 09/09/18 06:55 Urine Glucose Negative mg/dL (Negative) 04/28/19 06:55 Path Cons Comment C 09/09/18 07:06
--- NOTE | 2018-09-10 14:40 | PGE_ITS ---
Date of Service Date of service: 09/10/18 Time of Service: 14:33 Assessment and Plan (1) Neutropenic fever: Current visit: Yes Status: Acute Initially with severe neutropenia noted by labs (ANC 0.14), now improved but still <1000. Port examined and without obvious source of infection. Urinalysis and CXR appear unremarkable. Patient also with reported diarrhea that may be related to recent initiation of chemotherapy, with negative C.Diff and + Fecal Leukocytes (cultues pending). Continue to monitor blood cultures. Continue Cefepime, now day #2. Patient requesting to return home as she feels improved - discussed importance of current treatment. Will plan on discharge at minimum with >24 hours afebrile (48 hours preferable) with ANC >1000 (1500 preferable). If no source is identified will plan on Levofloxacin for a planned 14 day course. This plan was discussed with [facility] [place] [facility] who was in agreement. (2) HER2-positive carcinoma of right breast: Current visit: Yes Status: Acute Reported ER +/[place] +/HER2 + right sided Bread Ca, s/p lumpectomy with + LN's. Currently received 1st cycle of combination Taxotere, Carboplatin, Herceptin, and Perjeta for a planned 6 cycles of chemotherapy. Follows at [facility] [place]. (3) DVT prophylaxis: Current visit: Yes Status: Acute SC Lovenox. Subjective Interval history since last seen: Very pleasant but unfortunate 38-year-old woman with recently diagnosed breast cancer, initiated on chemotherapy 9 days ago, admitted from [facility] Emergency Department on 09/09 with a diagnosis of neutropenic fever. Ms. Cuello has a past medical history significant for a recently diagnosed ER +/TN +/HER 2 + right-sided breast CA, with self-reported lumpectomy and lymph node dissection with positive lymph nodes. The patient has since had a port placed, and has initiated chemotherapy with Taxotere, Carboplatin, Herceptin, and Per jeta every 3 weeks for planned total of 6 cycles. She was initiated on chemotherapy 9 days prior to admission. The patient reported onset of subjective fevers overnight prior to her presentation, with significant distress that included diffuse diaphoresis and subjective chills. She also reports concurrent diarrhea that started approximately 2 days previously. Upon presentation to the ED she was not noted to be febrile, but was neutropenic on labs. Her CXR and urinalysis were negative, and no focal source of infection was found. Influenza was also checked and negative. She was admitted for further evaluation and treatment. Since the time of admission Ms. Cuello became febrile, with a TMax of 39.5 yesterday afternoon, but with a favorable fever curve since that time. Her ANC remains low, but she is no longer severely neutropenic. Other results include negative C.Diff, negative blood cultures, but with + Fecal Leukocytes. No other events reported. Remains afebrile. Exam Narrative Exam Narrative: General: Patient appears uncomfortable and ill, but not toxic. AAOX3. Neck: Supple Skin: Port noted left upper chest. Minimal surrounding edema with steri-strips still in place, but no evidence of induration, underlying fluctuance, or surrounding cellulitic changes. No drainage. CV: Regular, tachycardic, S1S2, No rubs, murmurs, or gallops. Pulmonary: Clear to auscultation bilaterally, no crackles, wheezing, or rhonchi Abdomen: + Bowel Sounds, soft, nontender, nondistended Vascular: No lower extremity edema Neurologic: CN II-XII grossly intact. No focal deficits. Psych: Normal mood and affect. Objective Objective Clinical Data: Abnormal lab results 09/10/18 09/10/18 Range/Units 06:50 06:50 WBC 2.63 L (4.4-10.8) k/cumm RBC 3.75 L (4.00-5.20) m/cumm Hgb 10.9 L (12.0-15.5) g/dL Hct 32.5 L (36.0-46.0) % Plt Count 101 L (130-400) x1000/uL Absolute Neutrophils 0.79 L (1.2-6.7) k/cumm Absolute Lymphocytes 0.95 L (1.2-3.4) k/cumm Absolute Monocytes 0.87 H (0.11-0.7) k/cumm Glucose 105 H (70-100) mg/dL Vital Signs Temperature 36.3 C L 09/10/18 13:30 Temperature Source Tympanic 09/10/18 13:30 Pulse 100 H 09/10/18 13:30 Pulse Rhythm Regular 09/10/18 09:00 Respiratory Rate 18 09/10/18 13:30 Respiratory Effort Non-Labored 09/10/18 09:00 Respiratory Depth Normal 09/10/18 09:00 Respiratory Pattern Normal 09/10/18 09:00 Blood Pressure 119/82 09/10/18 13:30 Blood Pressure Position Sitting 09/09/18 06:39 Pulse Oximetry 100 09/10/18 13:30 Oxygen Delivery Method Room Air 09/10/18 13:30 Oxygen Flow Rate 0 09/10/18 13:30 Pain Level 0 09/10/18 09:54 Comment 09/09/18 23:15 Intake & Output 09/09/18 09/10/18 09/10/18 23:59 11:59 23:59 Intake Total 1340 / 2540 2139.5 / 2139.5 Output Total 500 / 500 Balance 840 / 2040 2139.5 / 2139.5 Intake: IV 1100 / 2300 2139.5 / 2139.5 Oral 240 / 240 Output: Urine 500 / 500 Other: Urine Color Light Maureen Urine Appearance Clear Comment pt voiding independently in the toilet Stool Size Moderate Moderate Stool Characteristics Soft Liquid Brown Brown Voiding Methods Toilet Toilet Laboratory Results WBC 2.63 k/cumm (4.4-10.8) L 09/10/18 06:50 RBC 3.75 m/cumm (4.00-5.20) L 09/10/18 06:50 Hgb 10.9 g/dL (12.0-15.5) L 09/10/18 06:50 Hct 32.5 % (36.0-46.0) L 09/10/18 06:50 MCV 86.7 fL (80-95) 09/10/18 06:50 MCH 29.1 pg (27.0-33.0) 09/10/18 06:50 MCHC 33.5 g/dL (32.0-36.0) 09/10/18 06:50 RDW 12.2 % (11.7-14.6) 09/10/18 06:50 Plt Count 101 x1000/uL (130-400) L 09/10/18 06:50 MPV 10.0 fL (8.0-11.0) 09/10/18 06:50 Immature Gran % 0.0 09/10/18 06:50 Neutrophils % 25.0 09/10/18 06:50 Band Neutrophils % 5.0 % 09/10/18 06:50 Lymphocytes % 30.0 09/10/18 06:50 Atypical Lymphs % 6 09/10/18 06:50 Monocytes % 33.0 09/10/18 06:50 Eosinophils % 1.0 09/10/18 06:50 Basophils % 0.0 09/10/18 06:50 Absolute Neutrophils 0.79 k/cumm (1.2-6.7) L 09/10/18 06:50 Absolute Lymphocytes 0.95 k/cumm (1.2-3.4) L 09/10/18 06:50 Absolute Monocytes 0.87 k/cumm (0.11-0.7) H 09/10/18 06:50 Absolute Eosinophils 0.03 k/cumm (0.0-0.7) 09/10/18 06:50 Absolute Basophils 0.00 k/cumm (0.0-0.2) 09/10/18 06:50 Differential Comment Manual differential 09/10/18 06:50 RBC Morphology Normal 09/10/18 06:50 Sodium 138 mmol/L (136-145) 09/10/18 06:50 Potassium 3.6 mmol/L (3.5-5.1) 09/10/18 06:50 Chloride 106 mmol/L (98-107) 09/10/18 06:50 Carbon Dioxide 25.7 mmol/L (21.0-32.0) 09/10/18 06:50 Anion Gap 6.3 mmol/L (3-11) 09/10/18 06:50 BUN 7 mg/dL (7-18) 09/10/18 06:50 Creatinine 0.97 mg/dL (0.55-1.02) 09/10/18 06:50 Estimated GFR/1.73 m2 >= 60.00 (mL/min/1.73m2) 09/10/18 06:50 Glucose 105 mg/dL (70-100) H 09/10/18 06:50 Lactate 1.0 mmol/l (0.6-1.4) 09/09/18 07:06 Calcium 8.5 mg/dL (8.5-10.1) 09/10/18 06:50 Magnesium 1.8 mg/dL (1.8-2.4) 09/10/18 06:50 Total Bilirubin 1.8 mg/dL (0.2-1.0) H 09/09/18 07:06 AST 39 U/L (15-37) H 09/09/18 07:06 ALT 76 U/L (12-78) 09/09/18 07:06 Alkaline Phosphatase 89 U/L (46-116) 09/09/18 07:06 Total Protein 7.6 g/dL (6.4-8.2) 09/09/18 07:06 Albumin 3.2 g/dL (3.4-5.0) L 09/09/18 07:06 Serum HCG, Qual Negative 09/09/18 07:06 Urine Color Yellow (Yellow) 09/09/18 06:55 Urine Clarity Sl cloudy 09/09/18 06:55 Urine pH 5.5 (5-8) 09/09/18 06:55 Ur Specific [place] 1.020 (1.005-1.025) 09/09/18 06:55 Urine Protein 100 mg/dL (Negative) H 09/09/18 06:55 Urine Ketones Negative mg/dL (Negative) 09/09/18 06:55 Urine Blood Large (Negative) H 09/09/18 06:55 Urine Nitrite Negative (Negative) 09/09/18 06:55 Urine Bilirubin Negative (Negative) 09/09/18 06:55 Urine Urobilinogen 0.2 EU/dL (Up TO 0.2) 09/09/18 06:55 Ur Leukocyte Esterase Negative (Negative) 09/09/18 06:55 Urine RBC 20-50 (0-2) H 09/09/18 06:55 Urine WBC 3-5 HPF (0-5) 09/09/18 06:55 Ur Epithelial Cells Rare HPF (Negative) 09/09/18 06:55 Urine Crystals Moderate amorphous HPF (Negative) 09/09/18 06:55 Urine Bacteria Few HPF (Negative) 09/09/18 06:55 Urine Casts 10-20 coarsegranular LPF (Negative) 09/09/18 06:55 Urine Mucus Moderate (Negative) 09/09/18 06:55 Urine Other Few renal (Negative) 09/09/18 06:55 Ur Culture Indicated? Yes 09/09/18 06:55 Urine Glucose Negative mg/dL (Negative) 04/28/19 06:55 Path Cons Comment C 09/09/18 07:06
--- NOTE | 2018-09-10 15:22 | CHAPLAIN ---
Nikki's dad, Chandler, has been her much of the day with her. She said she is feeling much bed, and was hoping to go home today but understands the hospitalist's caution in asking her to stay one more night. Nikki seems to be well supported by her dad. I introduced myself, explained my role and offered support.
[2018-09-10] MEDS: Enoxaparin 40 MG/0.4 ML SYR SC (16:16)
[2018-09-10 16:36] VITALS: BP 114/82; PULSE 93; RESP 14; O2SAT 99
[2018-09-10 16:46] VITALS: TEMP 36.6
[2018-09-10 23:27] VITALS: BP 126/85; PULSE 114; TEMP 37.8; O2SAT 96
[2018-09-11 00:23] VITALS: TEMP 37.9
[2018-09-11] MEDS: Ibuprofen 600 MG TAB PO ×3 (00:23→19:33)
[2018-09-11] MEDS: Loperamide 2 MG CAP PO ×4 (00:23→18:41)
[2018-09-11 00:27] VITALS: TEMP 37.9
[2018-09-11 07:35] VITALS: BP 118/87; PULSE 100; RESP 18; TEMP 36.8; O2SAT 100
[2018-09-11 07:36] LABS: HCT 30.5 % (36.0-46.0); HGB 10.2 g/dL (12.0-15.5); Mean Corp. HGB Concentration 33.4 g/dL (32.0-36.0); Mean Corpuscular Hemoglobin 29.1 pg (27.0-33.0); Mean Corpuscular Volume 87.1 fL (80-95); Mean Platelet Volume 9.7 fL (8.0-11.0); RBC Distribution Width 12.3 % (11.7-14.6); White Blood Cell Count 2.62 k/cumm (4.4-10.8)
[2018-09-11 07:50] LABS: Anion Gap 7.7 mmol/L (3-11); BUN 6 mg/dL (7-18); CO2 24.3 mmol/L (21.0-32.0); CREATININE 0.88 mg/dL (0.55-1.02); Calcium 8.3 mg/dL (8.5-10.1); Chloride 107 mmol/L (98-107); Glucose 100 mg/dL (70-100); Magnesium 1.8 mg/dL (1.8-2.4); Potassium 3.8 mmol/L (3.5-5.1); Sodium 139 mmol/L (136-145)
[2018-09-11] MEDS: Ondansetron 4 MG/2 ML VIAL IVP ×2 (08:25→19:32)
[2018-09-11] MEDS: Normal Saline Flush 10 ML SYR IVP (08:26)
[2018-09-11] MEDS: CEFEPIME 2 GM in Normal Saline 100 ML IVPB (08:27)
[2018-09-11 08:32] LABS: Absolute Lymphocyte Count 1.18 k/cumm (1.2-3.4); Absolute Monocyte Count 0.26 k/cumm (0.11-0.7); Absolute Neutrophil Count 1.18 k/cumm (1.2-6.7); Atypical Lymphocytes % 7; Diff Comment Manual Differential; Platelet Count 96 x1000/uL (130-400); RBC Morphology Normal
[2018-09-11] MEDS: levoFLOXacin 500 MG, levoFLOXacin 250 MG 750 MG PO (10:05)
[2018-09-11 11:08] LABS: Campylobacter PCR SEE COMMENTS; Salmonella PCR SEE COMMENTS; Shiga Toxin PCR SEE COMMENTS; Shigella/Enteroinvasive Ecoli SEE COMMENTS
[2018-09-11] MEDS: Magic Mouthwash 119 ML BTL 10 ML MM ×2 (11:59→17:01)
[2018-09-11 13:40] VITALS: BP 114/77; PULSE 99; RESP 18; TEMP 36.3; O2SAT 98
--- NOTE | 2018-09-11 14:07 | PDOC.CMPRO ---
- If Service Date Differs Date of service: 09/11/18 Time of Service: 14:07 Care Management Progress Note S/O:Suzi was laying down in bed when CM came to visit. She verbalized disappointment with not being able to be discharged today, but said she understands why it is recommended that she stay another day. She has a friend who is coming to visit this afternoon who will attend to some chores in her home and feed her cats. A:Suzi is a 38 year old female admitted to [facility] on 09/09 with a diagnosis of neutropenic fever. P:Suzi is currently afebrile and no longer has nausea or vomitting. She will likely be discharged tomorrow if she remains afebrile. She will not need any services at this time. Her father will transport her in a private automobile. CM will continue to provide support to patient, family, care team and discharge planning.
--- NOTE | 2018-09-11 14:17 | CMPROGNOTE_ITS ---
- If Service Date Differs Date of service: 09/11/18 Time of Service: 14:07 Care Management Progress Note S/O:Suzi was laying down in bed when CM came to visit. She verbalized disappointment with not being able to be discharged today, but said she understands why it is recommended that she stay another day. She has a friend who is coming to visit this afternoon who will attend to some chores in her home and feed her cats. A:Suzi is a 38 year old female admitted to [facility] on 09/09 with a diagnosis of neutropenic fever. P:Suzi is currently afebrile and no longer has nausea or vomitting. She will likely be discharged tomorrow if she remains afebrile. She will not need any services at this time. Her father will transport her in a private automobile. CM will continue to provide support to patient, family, care team and discharge planning.
[2018-09-11] MEDS: Normal Saline 1,000 ML 125 ML IV ×2 (14:46→22:18)
[2018-09-11 15:25] VITALS: BP 111/78; PULSE 94; RESP 16; TEMP 36.4; O2SAT 100
--- NOTE | 2018-09-11 16:04 | W.PM.PROGNOT ---
Date of Service Date of service: 09/11/18 Time of Service: 16:04 Assessment and Plan (1) Neutropenic fever: Current visit: Yes Status: Acute Initially with severe neutropenia noted by labs (ANC 0.14), now improved and over 1000. Port examined and without obvious source of infection. Urinalysis and CXR appear unremarkable. Patient also with reported diarrhea that may be related to recent initiation of chemotherapy, with negative C.Diff and + Fecal Leukocytes (cultues pending). Continue to monitor blood cultures. Was maintained on Cefepime, changed to oral Levofloxacin today - source currently unclear. Will plan on discharge when afebrile for >48 hours, with ANC preferably >1500 (1500 preferable). If no source is identified will plan on Levofloxacin for a planned 14 day course. This plan was discussed with [facility] who was in agreement. (2) HER2-positive carcinoma of right breast: Current visit: Yes Status: Acute Reported ER +/[place] +/HER2 + right sided Bread Ca, s/p lumpectomy with + LN's. Currently received 1st cycle of combination Taxotere, Carboplatin, Herceptin, and Perjeta for a planned 6 cycles of chemotherapy. Follows at [facility] [place]. (3) DVT prophylaxis: Current visit: Yes Status: Acute SC Lovenox. Subjective Interval history since last seen: Very pleasant but unfortunate 38-year-old woman with recently diagnosed breast cancer, initiated on chemotherapy 9 days ago, admitted from [facility] Emergency Department on 09/09 with a diagnosis of neutropenic fever. Ms. Cuello has a past medical history significant for a recently diagnosed ER +/AL +/HER 2 + right-sided breast CA, with self-reported lumpectomy and lymph node dissection with positive lymph nodes. The patient has since had a port placed, and has initiated chemotherapy with Taxotere, Carboplatin, Herceptin, and Perjeta every 3 weeks for planned total of 6 cycles. She was initiated on chemotherapy 9 days prior to admission. The patient reported onset of subjective fevers overnight prior to her presentation, with significant distress that included diffuse diaphoresis and subjective chills. She also reports concurrent diarrhea that started approximately 2 days previously. Upon presentation to the ED she was not noted to be febrile, but was neutropenic on labs. Her CXR and urinalysis were negative, and no focal source of infection was found. Influenza was also checked and negative. She was admitted for further evaluation and treatment. Following admission Ms. Cuello became febrile, with a TMax of 39.5, but with a favorable fever curve since that time, now technically afebrile for over 24 hours. Her ANC remains low, but she is no longer severely neutropenic and her numbers are improving daily. Other results include negative C.Diff, negative blood cultures, but with + Fecal Leukocytes. No other events reported. Remains afebrile. Exam Narrative Exam Narrative: General: Patient appears vastly improved, not toxic. AAOX3. Neck: Supple Skin: Port noted left upper chest. Minimal surrounding edema with steri-strips still in place, but no evidence of induration, underlying fluctuance, or surrounding cellulitic changes. No drainage. CV: Regular, nontachycardic, S1S2, No rubs, murmurs, or gallops. Pulmonary: Clear to auscultation bilaterally, no crackles, wheezing, or rhonchi Abdomen: + Bowel Sounds, soft, nontender, nondistended Vascular: No lower extremity edema Psych: Normal mood and affect. Objective Objective Clinical Data: Abnormal lab results 09/11/18 09/11/18 Range/Units 07:16 07:16 WBC 2.62 L (4.4-10.8) k/cumm RBC 3.50 L (4.00-5.20) m/cumm Hgb 10.2 L (12.0-15.5) g/dL Hct 30.5 L (36.0-46.0) % Plt Count 96 L (130-400) x1000/uL Absolute Neutrophils 1.18 L (1.2-6.7) k/cumm Absolute Lymphocytes 1.18 L (1.2-3.4) k/cumm BUN 6 L (7-18) mg/dL Calcium 8.3 L (8.5-10.1) mg/dL Vital Signs Temperature 36.3 C L 09/11/18 13:40 Temperature Source Tympanic 09/11/18 13:40 Pulse 99 H 09/11/18 13:40 Pulse Rhythm Regular 09/11/18 15:44 Respiratory Rate 18 09/11/18 13:40 Respiratory Effort Non-Labored 09/11/18 15:44 Respiratory Depth Normal 09/11/18 15:44 Respiratory Pattern Normal 09/11/18 15:44 Blood Pressure 114/77 09/11/18 13:40 Blood Pressure Position Sitting 09/09/18 06:39 Pulse Oximetry 98 09/11/18 13:40 Oxygen Delivery Method Room Air 09/11/18 13:40 Oxygen Flow Rate 0 09/11/18 13:40 Pain Level 0 09/10/18 09:54 Comment 09/09/18 23:15 Intake & Output 09/10/18 09/11/18 09/11/18 23:59 11:59 23:59 Intake Total 2490 / 4629.5 1200 / 1560 360 / 1560 Balance 2490 / 4629.5 1200 / 1560 360 / 1560 Intake: IV 2050 / 4189.5 1200 / 1200 Oral 440 / 440 360 / 360 Other: Urine Color Yellow Comment pt reports multiple voids throughout the night. Stool Characteristics Liquid Liquid Voiding Methods Toilet Laboratory Results WBC 2.62 k/cumm (4.4-10.8) L 09/11/18 07:16 RBC 3.50 m/cumm (4.00-5.20) L 09/11/18 07:16 Hgb 10.2 g/dL (12.0-15.5) L 09/11/18 07:16 Hct 30.5 % (36.0-46.0) L 09/11/18 07:16 MCV 87.1 fL (80-95) 09/11/18 07:16 MCH 29.1 pg (27.0-33.0) 09/11/18 07:16 MCHC 33.4 g/dL (32.0-36.0) 09/11/18 07:16 RDW 12.3 % (11.7-14.6) 09/11/18 07:16 Plt Count 96 x1000/uL (130-400) L 09/11/18 07:16 MPV 9.7 fL (8.0-11.0) 09/11/18 07:16 Immature Gran % 0.0 09/11/18 07:16 Neutrophils % 45.0 09/11/18 07:16 Band Neutrophils % 5.0 % 09/10/18 06:50 Lymphocytes % 38.0 09/11/18 07:16 Atypical Lymphs % 7 09/11/18 07:16 Monocytes % 10.0 09/11/18 07:16 Eosinophils % 0.0 09/11/18 07:16 Basophils % 0.0 09/11/18 07:16 Absolute Neutrophils 1.18 k/cumm (1.2-6.7) L 09/11/18 07:16 Absolute Lymphocytes 1.18 k/cumm (1.2-3.4) L 09/11/18 07:16 Absolute Monocytes 0.26 k/cumm (0.11-0.7) 09/11/18 07:16 Absolute Eosinophils 0.00 k/cumm (0.0-0.7) 09/11/18 07:16 Absolute Basophils 0.00 k/cumm (0.0-0.2) 09/11/18 07:16 Differential Comment Manual differential 09/11/18 07:16 RBC Morphology Normal 09/11/18 07:16 Sodium 139 mmol/L (136-145) 09/11/18 07:16 Potassium 3.8 mmol/L (3.5-5.1) 09/11/18 07:16 Chloride 107 mmol/L (98-107) 09/11/18 07:16 Carbon Dioxide 24.3 mmol/L (21.0-32.0) 09/11/18 07:16 Anion Gap 7.7 mmol/L (3-11) 09/11/18 07:16 BUN 6 mg/dL (7-18) L 09/11/18 07:16 Creatinine 0.88 mg/dL (0.55-1.02) 09/11/18 07:16 Estimated GFR/1.73 m2 >= 60.00 (mL/min/1.73m2) 09/11/18 07:16 Glucose 100 mg/dL (70-100) 09/11/18 07:16 Lactate 1.0 mmol/l (0.6-1.4) 09/09/18 07:06 Calcium 8.3 mg/dL (8.5-10.1) L 09/11/18 07:16 Magnesium 1.8 mg/dL (1.8-2.4) 09/11/18 07:16 Total Bilirubin 1.8 mg/dL (0.2-1.0) H 09/09/18 07:06 AST 39 U/L (15-37) H 09/09/18 07:06 ALT 76 U/L (12-78) 09/09/18 07:06 Alkaline Phosphatase 89 U/L (46-116) 09/09/18 07:06 Total Protein 7.6 g/dL (6.4-8.2) 09/09/18 07:06 Albumin 3.2 g/dL (3.4-5.0) L 09/09/18 07:06 Serum HCG, Qual Negative 09/09/18 07:06 Urine Color Yellow (Yellow) 09/09/18 06:55 Urine Clarity Sl cloudy 09/09/18 06:55 Urine pH 5.5 (5-8) 09/09/18 06:55 Ur Specific [place] 1.020 (1.005-1.025) 09/09/18 06:55 Urine Protein 100 mg/dL (Negative) H 09/09/18 06:55 Urine Ketones Negative mg/dL (Negative) 09/09/18 06:55 Urine Blood Large (Negative) H 09/09/18 06:55 Urine Nitrite Negative (Negative) 09/09/18 06:55 Urine Bilirubin Negative (Negative) 09/09/18 06:55 Urine Urobilinogen 0.2 EU/dL (Up TO 0.2) 09/09/18 06:55 Ur Leukocyte Esterase Negative (Negative) 09/09/18 06:55 Urine RBC 20-50 (0-2) H 09/09/18 06:55 Urine WBC 3-5 HPF (0-5) 09/09/18 06:55 Ur Epithelial Cells Rare HPF (Negative) 09/09/18 06:55 Urine Crystals Moderate amorphous HPF (Negative) 09/09/18 06:55 Urine Bacteria Few HPF (Negative) 09/09/18 06:55 Urine Casts 10-20 coarsegranular LPF (Negative) 09/09/18 06:55 Urine Mucus Moderate (Negative) 09/09/18 06:55 Urine Other Few renal (Negative) 09/09/18 06:55 Ur Culture Indicated? Yes 09/09/18 06:55 Urine Glucose Negative mg/dL (Negative) 09/09/18 06:55 Path Cons Comment C 09/09/18 07:06
--- NOTE | 2018-09-11 16:09 | PGE_ITS ---
Date of Service Date of service: 09/11/18 Time of Service: 16:04 Assessment and Plan (1) Neutropenic fever: Current visit: Yes Status: Acute Initially with severe neutropenia noted by labs (ANC 0.14), now improved and over 1000. Port examined and without obvious source of infection. Urinalysis and CXR appear unremarkable. Patient also with reported diarrhea that may be related to recent initiation of chemotherapy, with negative C.Diff and + Fecal Leukocytes (cultues pending). Continue to monitor blood cultures. Was maintained on Cefepime, changed to oral Levofloxacin today - source currently unclear. Will plan on discharge when afebrile for >48 hours, with ANC preferably >1500 (1500 preferable). If no source is identified will plan on Levofloxacin for a planned 14 day course. This plan was discussed with [facility] who was in agreement. (2) HER2-positive carcinoma of right breast: Current visit: Yes Status: Acute Reported ER +/[place] +/HER2 + right sided Bread Ca, s/p lumpectomy with + LN's. Currently received 1st cycle of combination Taxotere, Carboplatin, Herceptin, and Perjeta for a planned 6 cycles of chemotherapy. Follows at [facility]. (3) DVT prophylaxis: Current visit: Yes Status: Acute SC Lovenox. Subjective Interval history since last seen: Very pleasant but unfortunate 38-year-old woman with recently diagnosed breast cancer, initiated on chemotherapy 9 days ago, admitted from [facility] Emergency Department on 09/09 with a diagnosis of neutropenic fever. Ms. Cuello has a past medical history significant for a recently diagnosed ER +/[place] +/HER 2 + right-sided breast CA, with self-reported lumpectomy and lymph node dissection with positive lymph nodes. The patient has since had a port placed, and has initiated chemotherapy with Taxotere, Carboplatin, Herceptin, and Perjeta every 3 weeks for planned total of 6 cycles. She was initiated on chemotherapy 9 days prior to admission. The patient reported onset of subjective fevers overnight prior to her presentation, with significant distress that included diffuse diaphoresis and subjective chills. She also reports concurrent diarrhea that started approximately 2 days previously. Upon presentation to the ED she was not noted to be febrile, but was neutropenic on labs. Her CXR and urinalysis were negative, and no focal source of infection was found. Influenza was also checked and negative. She was admitted for further evaluation and treatment. Following admission Ms. Cuello became febrile, with a TMax of 39.5, but with a favorable fever curve since that time, now technically afebrile for over 24 hours. Her ANC remains low, but she is no longer severely neutropenic and her numbers are improving daily. Other results include negative C.Diff, negative blood cultures, but with + Fecal Leukocytes. No other events reported. Remains afebrile. Exam Narrative Exam Narrative: General: Patient appears vastly improved, not toxic. AAOX3. Neck: Supple Skin: Port noted left upper chest. Minimal surrounding edema with steri-strips still in place, but no evidence of induration, underlying fluctuance, or surrounding cellulitic changes. No drainage. CV: Regular, nontachycardic, S1S2, No rubs, murmurs, or gallops. Pulmonary: Clear to auscultation bilaterally, no crackles, wheezing, or rhonchi Abdomen: + Bowel Sounds, soft, nontender, nondistended Vascular: No lower extremity edema Psych: Normal mood and affect. Objective Objective Clinical Data: Abnormal lab results 09/11/18 09/11/18 Range/Units 07:16 07:16 WBC 2.62 L (4.4-10.8) k/cumm RBC 3.50 L (4.00-5.20) m/cumm Hgb 10.2 L (12.0-15.5) g/dL Hct 30.5 L (36.0-46.0) % Plt Count 96 L (130-400) x1000/uL Absolute Neutrophils 1.18 L (1.2-6.7) k/cumm Absolute Lymphocytes 1.18 L (1.2-3.4) k/cumm BUN 6 L (7-18) mg/dL Calcium 8.3 L (8.5-10.1) mg/dL Vital Signs Temperature 36.3 C L 09/11/18 13:40 Temperature Source Tympanic 09/11/18 13:40 Pulse 99 H 09/11/18 13:40 Pulse Rhythm Regular 09/11/18 15:44 Respiratory Rate 18 09/11/18 13:40 Respiratory Effort Non-Labored 09/11/18 15:44 Respiratory Depth Normal 09/11/18 15:44 Respiratory Pattern Normal 09/11/18 15:44 Blood Pressure 114/77 09/11/18 13:40 Blood Pressure Position Sitting 09/09/18 06:39 Pulse Oximetry 98 09/11/18 13:40 Oxygen Delivery Method Room Air 09/11/18 13:40 Oxygen Flow Rate 0 09/11/18 13:40 Pain Level 0 09/10/18 09:54 Comment 09/09/18 23:15 Intake & Output 09/10/18 09/11/18 09/11/18 23:59 11:59 23:59 Intake Total 2490 / 4629.5 1200 / 1560 360 / 1560 Balance 2490 / 4629.5 1200 / 1560 360 / 1560 Intake: IV 2050 / 4189.5 1200 / 1200 Oral 440 / 440 360 / 360 Other: Urine Color Yellow Comment pt reports multiple voids throughout the night. Stool Characteristics Liquid Liquid Voiding Methods Toilet Laboratory Results WBC 2.62 k/cumm (4.4-10.8) L 09/11/18 07:16 RBC 3.50 m/cumm (4.00-5.20) L 09/11/18 07:16 Hgb 10.2 g/dL (12.0-15.5) L 09/11/18 07:16 Hct 30.5 % (36.0-46.0) L 09/11/18 07:16 MCV 87.1 fL (80-95) 09/11/18 07:16 MCH 29.1 pg (27.0-33.0) 09/11/18 07:16 MCHC 33.4 g/dL (32.0-36.0) 09/11/18 07:16 RDW 12.3 % (11.7-14.6) 09/11/18 07:16 Plt Count 96 x1000/uL (130-400) L 09/11/18 07:16 MPV 9.7 fL (8.0-11.0) 09/11/18 07:16 Immature Gran % 0.0 09/11/18 07:16 Neutrophils % 45.0 09/11/18 07:16 Band Neutrophils % 5.0 % 09/10/18 06:50 Lymphocytes % 38.0 09/11/18 07:16 Atypical Lymphs % 7 09/11/18 07:16 Monocytes % 10.0 09/11/18 07:16 Eosinophils % 0.0 09/11/18 07:16 Basophils % 0.0 09/11/18 07:16 Absolute Neutrophils 1.18 k/cumm (1.2-6.7) L 09/11/18 07:16 Absolute Lymphocytes 1.18 k/cumm (1.2-3.4) L 09/11/18 07:16 Absolute Monocytes 0.26 k/cumm (0.11-0.7) 09/11/18 07:16 Absolute Eosinophils 0.00 k/cumm (0.0-0.7) 09/11/18 07:16 Absolute Basophils 0.00 k/cumm (0.0-0.2) 09/11/18 07:16 Differential Comment Manual differential 09/11/18 07:16 RBC Morphology Normal 09/11/18 07:16 Sodium 139 mmol/L (136-145) 09/11/18 07:16 Potassium 3.8 mmol/L (3.5-5.1) 09/11/18 07:16 Chloride 107 mmol/L (98-107) 09/11/18 07:16 Carbon Dioxide 24.3 mmol/L (21.0-32.0) 09/11/18 07:16 Anion Gap 7.7 mmol/L (3-11) 09/11/18 07:16 BUN 6 mg/dL (7-18) L 09/11/18 07:16 Creatinine 0.88 mg/dL (0.55-1.02) 09/11/18 07:16 Estimated GFR/1.73 m2 >= 60.00 (mL/min/1.73m2) 09/11/18 07:16 Glucose 100 mg/dL (70-100) 09/11/18 07:16 Lactate 1.0 mmol/l (0.6-1.4) 09/09/18 07:06 Calcium 8.3 mg/dL (8.5-10.1) L 09/11/18 07:16 Magnesium 1.8 mg/dL (1.8-2.4) 09/11/18 07:16 Total Bilirubin 1.8 mg/dL (0.2-1.0) H 09/09/18 07:06 AST 39 U/L (15-37) H 09/09/18 07:06 ALT 76 U/L (12-78) 09/09/18 07:06 Alkaline Phosphatase 89 U/L (46-116) 09/09/18 07:06 Total Protein 7.6 g/dL (6.4-8.2) 09/09/18 07:06 Albumin 3.2 g/dL (3.4-5.0) L 09/09/18 07:06 Serum HCG, Qual Negative 09/09/18 07:06 Urine Color Yellow (Yellow) 09/09/18 06:55 Urine Clarity Sl cloudy 09/09/18 06:55 Urine pH 5.5 (5-8) 09/09/18 06:55 Ur Specific [place] 1.020 (1.005-1.025) 09/09/18 06:55 Urine Protein 100 mg/dL (Negative) H 09/09/18 06:55 Urine Ketones Negative mg/dL (Negative) 09/09/18 06:55 Urine Blood Large (Negative) H 09/09/18 06:55 Urine Nitrite Negative (Negative) 09/09/18 06:55 Urine Bilirubin Negative (Negative) 09/09/18 06:55 Urine Urobilinogen 0.2 EU/dL (Up TO 0.2) 09/09/18 06:55 Ur Leukocyte Esterase Negative (Negative) 09/09/18 06:55 Urine RBC 20-50 (0-2) H 09/09/18 06:55 Urine WBC 3-5 HPF (0-5) 09/09/18 06:55 Ur Epithelial Cells Rare HPF (Negative) 09/09/18 06:55 Urine Crystals Moderate amorphous HPF (Negative) 09/09/18 06:55 Urine Bacteria Few HPF (Negative) 09/09/18 06:55 Urine Casts 10-20 coarsegranular LPF (Negative) 09/09/18 06:55 Urine Mucus Moderate (Negative) 09/09/18 06:55 Urine Other Few renal (Negative) 09/09/18 06:55 Ur Culture Indicated? Yes 09/09/18 06:55 Urine Glucose Negative mg/dL (Negative) 09/09/18 06:55 Path Cons Comment C 09/09/18 07:06
[2018-09-11] MEDS: Enoxaparin 40 MG/0.4 ML SYR SC (16:50)
[2018-09-11 19:20] VITALS: O2SAT 100
[2018-09-12 04:00] VITALS: BP 112/70; PULSE 90; RESP 12; TEMP 36.6; O2SAT 98
[2018-09-12] MEDS: Normal Saline 1,000 ML 125 ML IV (06:11)
[2018-09-12 07:01] LABS: Absolute Basophil Count 0.01 k/cumm (0.0-0.2); Absolute Lymphocyte Count 0.96 k/cumm (1.2-3.4); Absolute Monocyte Count 0.37 k/cumm (0.11-0.7); Absolute Neutrophil Count 1.19 k/cumm (1.2-6.7); Basophils % 0.4; HCT 32.7 % (36.0-46.0); HGB 10.9 g/dL (12.0-15.5); Lymphocytes % 37.9; Mean Corp. HGB Concentration 33.3 g/dL (32.0-36.0); Mean Platelet Volume 9.9 fL (8.0-11.0); Monocytes % 14.6; Neutrophils % 47.1; RBC 3.76 m/cumm (4.00-5.20); RBC Distribution Width 12.6 % (11.7-14.6); White Blood Cell Count 2.53 k/cumm (4.4-10.8)
[2018-09-12 07:24] LABS: Anion Gap 9.1 mmol/L (3-11); BUN 5 mg/dL (7-18); CO2 25.9 mmol/L (21.0-32.0); CREATININE 0.87 mg/dL (0.55-1.02); Calcium 8.8 mg/dL (8.5-10.1); Chloride 105 mmol/L (98-107); Glucose 110 mg/dL (70-100); Magnesium 1.6 mg/dL (1.8-2.4); Potassium 3.3 mmol/L (3.5-5.1); Sodium 140 mmol/L (136-145)
[2018-09-12 07:50] LABS: Diff Comment Diff Reviewed; Platelet Count 94 x1000/uL (130-400); RBC Morphology Normal
[2018-09-12] MEDS: Magic Mouthwash 119 ML BTL 10 ML MM (08:34)
[2018-09-12 08:55] VITALS: BP 123/88; PULSE 108; RESP 20; TEMP 37.2; O2SAT 97
[2018-09-12] MEDS: levoFLOXacin 500 MG, levoFLOXacin 250 MG 750 MG PO (10:23)
--- NOTE | 2018-09-12 11:39 | W.PM.DS.N ---
Date of service: 09/12/18 Time of Service: 11:39 DS: Diagnosis Discharge Diagnosis (1) Neutropenic fever: Status: Acute (2) HER2-positive carcinoma of right breast: Status: Acute Discharge Plan Disposition Patient Disposition: HOME Condition: Stable Discharge Details Reason For Visit: NEUTROPENIC FEVER Admit Date/Time: 09/09/18 08:25 Admit Provider: Gary Van Attending Provider: Gary Van Primary Care Provider: Chandan Young Hospital Course Hospital Course: Chief Complaint: Fevers HPI: Very pleasant but unfortunate 38-year-old woman with recently diagnosed breast cancer, initiated on chemotherapy 9 days ago, admitted from [facility] Emergency Department on 09/09 with a diagnosis of neutropenic fever. Ms. Cuello has a past medical history significant for a recently diagnosed ER +/[place] +/HER 2 + right-sided breast CA, with self-reported lumpectomy and lymph node dissection with positive lymph nodes. The patient has since had a port placed, and has initiated chemotherapy with Taxotere, Carboplatin, Herceptin, and Perjeta every 3 weeks for planned total of 6 cycles. She was initiated on chemotherapy 9 days prior to admission. The patient reported onset of subjective fevers overnight prior to her presentation, with significant distress that included diffuse diaphoresis and subjective chills. She also reports concurrent diarrhea that started approximately 2 days previously. Upon presentation to the ED she was not noted to be febrile, but was neutropenic on labs. Her CXR and urinalysis were negative, and no focal source of infection was found. Influenza was also checked and negative. She was admitted for further evaluation and treatment. Following admission Ms. Cuello became febrile, with a TMax of 39.5, but with a favorable fever curve since that time, now afebrile for over 48 hours. Her ANC remains low, but she is no longer severely neutropenic and her numbers are improving daily. Other results include negative C.Diff, negative stool cultures, negative blood cultures, but with + Fecal Leukocytes. Although her initial urinalysis was negative for LE and Nitrites, with only 3-5 WBCs, she did eventually grow >100,000 of a pansensitive E.Coli. No other events reported. Remains afebrile. Hospital Course: (1) Neutropenic fever: Initially with severe neutropenia noted by labs (ANC 0.14), now improved and over 1000 (1.19). Port examined and without obvious source of infection. Urinalysis and CXR appear unremarkable, but UCx with >100,000 pansensitive E.Coli. Patient also with reported diarrhea that may be related to recent initiation of chemotherapy, with negative C.Diff, negative cultures, but + Fecal Leukocytes. Blood Cultures negative X72 hours at time of discharge. Was maintained on Cefepime, changed to oral Levofloxacin on the day prior to discharge over 24 hours ago, and monitored for an additional day. No fevers or return of rigors. Source remains unclear although may be urinary in source. Will plan on discharge with plans on Levofloxacin for a planned 14 total day course of antibiotics (today is day #4). This plan was discussed with [facility] who was in agreement. (2) HER2-positive carcinoma of right breast: Reported ER +/[place] +/HER2 + right sided Bread Ca, s/p lumpectomy with + LN's. Currently received 1st cycle of combination Taxotere, Carboplatin, Herceptin, and Perjeta for a planned 6 cycles of chemotherapy. [place]s [place] [facility] [place] Patient has been in contact with oncologist, and will be seen promptly following discharge. Will repeat CBC as an outpatient. (3) DVT prophylaxis: Was maintained on SC Lovenox during her hospitalization. Home Meds and New Rx's Prescriptions: New levofloxacin [Levaquin] 750 mg Tablet 750 mg PO Q24H Qty: 10 RF: 0 Continued triamcinolone acetonide 0.1 % cream 1 applic Topical BID PRN (Reason: eczema) Qty: 80 RF: 4 rizatriptan [Maxalt] 5 MG tablet 5 mg PO ONCE MDD 10mg Qty: 6 RF: 0 ibuprofen 800 MG tablet 800 mg PO TID PRN PRN (Reason: Pain) Qty: 20 RF: 0 ibuprofen [Advil] 100 mg Tablet 200 mg PO PRN PRNRF: 0 magnesium oxide 500 mg Capsule 500 mg PO PRN PRN (Reason: Headache) RF: 0 Discharge Instructions Additional Instructions: Please see your Primary Care Physician within 2 weeks of discharge, and your oncologist within the next week. Please repeat blood work in 2-3 days. Stand Alone Forms: Nursing Discharge Form Referrals: Chandan Young [Primary Care Provider] - Activity:: No Strenuous Activity Equipment/Supplies:: No Equipment Needed Diet:: As Tolerated Discharge Orders Discharge Orders: Discharge Order (Routine); Ordered 09/12/18 Ordered By: Gary Van Other Ambulatory Orders: Complete Blood Count w/Diff (Routine) Timeframe: 2 Days Location: Determined by Patient Ordered By: Gary Van Exam Narrative Exam Narrative: General: Patient appears vastly improved, not toxic. AAOX3. Neck: Supple Skin: Port noted left upper chest. Minimal surrounding edema with steri-strips still in place, but no evidence of induration, underlying fluctuance, or surrounding cellulitic changes. No drainage. CV: Regular, nontachycardic, S1S2, No rubs, murmurs, or gallops. Pulmonary: Clear to auscultation bilaterally, no crackles, wheezing, or rhonchi Abdomen: + Bowel Sounds, soft, nontender, nondistended Vascular: No lower extremity edema Psych: Normal mood and affect. DS: Data Vitals/I&O Vitals and I&O: Vital Signs Temperature 37.2 C 09/12/18 08:55 Temperature Source Tympanic 09/12/18 08:55 Pulse 108 H 09/12/18 08:55 Pulse Rhythm Regular 09/12/18 08:52 Respiratory Rate 20 09/12/18 08:55 Respiratory Effort Non-Labored 09/12/18 08:52 Respiratory Depth Normal 09/12/18 08:52 Respiratory Pattern Normal 09/12/18 08:52 Blood Pressure 123/88 09/12/18 08:55 Blood Pressure Position Sitting 09/09/18 06:39 Pulse Oximetry 97 09/12/18 08:55 Oxygen Delivery Method Room Air 09/12/18 08:55 Oxygen Flow Rate 0 09/12/18 08:55 Pain Level 0 09/12/18 08:55 Comment 09/09/18 23:15 Intake & Output 09/11/18 09/11/18 09/12/18 11:59 23:59 11:59 Intake Total 1200 / 2501.667 1301.667 / 2501.667 2055.417 / 5.417 Balance 1200 / 2501.667 1301.667 / 2501.667 2055.417 / 2054.417 Intake: IV 1200 / 2141.667 941.667 / 2141.667 985.417 / 985.417 Oral 360 / 360 1070 / 1070 Other: Urine Color Yellow Yellow Urine Appearance Clear Urine Odor None Comment pt reports multiple voids throughout the night. reports voiding independent w/o difficulty Stool Characteristics Liquid Voiding Methods Toilet Completed studies during hospitalization [Text1]: Exam(s) a RAD:XR chest 2V PA & lateral SYMPTOMS/DIAGNOSIS: COUGH, FEVER CHEST: Frontal and lateral views. The heart size and pulmonary vasculature are within normal limits. The tip of the indwelling central venous catheter is in good position in the superior vena cava. The lungs are clear. No effusions or pneumothoraces are identified. There is an S type scoliotic curvature of the thoracolumbar spine. IMPRESSION: No acute pulmonary process. Labs on day of discharge: Labs from last 24 hours 09/12/18 09/12/18 09/09/18 06:40 06:40 16:45 WBC 2.53 L RBC 3.76 L Hgb 10.9 L Hct 32.7 L MCV 87.0 MCH 29.0 MCHC 33.3 RDW 12.6 Plt Count 94 L MPV 9.9 Immature Gran % 0.0 Neutrophils % 47.1 Lymphocytes % 37.9 Monocytes % 14.6 Eosinophils % 0.0 Basophils % 0.4 Absolute Neutrophils 1.19 L Absolute Lymphocytes 0.96 L Absolute Monocytes 0.37 Absolute Eosinophils 0.00 Absolute Basophils 0.01 Differential Comment Diff reviewed RBC Morphology Normal Sodium 140 Potassium 3.3 L Chloride 105 Carbon Dioxide 25.9 Anion Gap 9.1 BUN 5 L Creatinine 0.87 Estimated GFR/1.73 m2 >= 60.00 Glucose 110 H Calcium 8.8 Magnesium 1.6 L Stool Campylobacter PCR See comments Stool Salmonella PCR See comments Stool Shigella PCR See comments Shiga Toxin (PCR) See comments Preliminary micro results at discharge 09/09/18 07:32 Blood Culture - Preliminary Blood NO GROWTH 72 HOURS 09/09/18 07:27 Blood Culture - Preliminary Blood NO GROWTH 72 HOURS Urine Culture Final 09/11/18-0759 Day 1 Result ISOLATES BELOW ISOLATE 1 COLONY COUNT >100,000 COLONIES/ML ISOLATE 1 APPEARANCE Gram Negative Srinivasan ISOLATE 1 ACTION SUSCEPTIBILITY TO FOLLOW ISOLATE 2 COLONY COUNT <10,000 COLONIES/ML ISOLATE 2 APPEARANCE Gram Positive Samson Day 2 Result ISOLATES BELOW ISOLATE 1 COLONY COUNT >100,000 COLONIES/ML ISOLATE 1 APPEARANCE Gram Negative Srinivasan ISOLATE 2 COLONY COUNT 10,000 - 50,000 COLONIES/ML ISOLATE 2 APPEARANCE Mixed Gram Positive Samson Organism 1 Escherichia coli COLONY COUNT >100,000 COLONIES/ML Organism 2 GRAM POSITIVE SAMSON,MIXED COLONY COUNT 10,000 - 50,000 COLONIES/ML Esch coli RESULT Ampicillin S Ampicillin/Sulbactam S Cefazolin S Ceftazidime S CEFTRIAXONE S Ciprofloxacin S Gentamicin S Nitrofurantoin S Imipenem S Levofloxacin S Tobramycin S Trimethoprim/Sulfamethoxazole S Piperacillin/Tazobactam S Rapid Influenza A & B Final 09/09/18 RESULT NEGATIVE FOR FLU A AND B ANTIGENS. C Difficile Screen Final 09/09/18 C Difficile Antigen Negative C Difficile Toxin Negative Interpretation Negative for toxigenic Clostridium difficile Lactoferrin Detection Final 09/09/18 RESULT POSITIVE Fecal Bacterial Pathogens PCR Salmonella PCR SEE COMMENTS 09/11/18 No Salmonella spp. DNA detected Shigella PCR SEE COMMENTS 09/11/18 No Shigella spp. or Enteroinvasive E.coli DNA detected. Campylobacter PCR SEE COMMENTS 09/11/18 No Campylobacter spp. (jejuni or coli) DNA detected. Shiga Toxin PCR SEE COMMENTS 09/11/18 No Shiga toxin producing genes detected. Test performed or referred by The [address] Medical History HER2-positive carcinoma of right breast (Acute) Metastatic breast cancer (Acute) Family History Mother Mental disorder Father No problems noted. Sister No problems noted. Brother No problems noted. Grandfather No problems noted. Grandfather No problems noted. Grandmother No problems noted. Grandmother No problems noted. Social History Smoking/Tobacco Use Status: Never Drug use: Never Do you feel safe at home: Yes Do you feel safe in your relationship?: Yes Additional Social history: Patient is single and without children. Denies tobacco or ETOH use. Also denies any illicit drug use.
[2018-09-12] MEDS: Potassium Chloride 20 MEQ TABCR 40 MEQ PO (12:17)
[2018-09-12] MEDS: Magnesium Oxide 400 MG TAB 800 MG PO (12:18)
--- NOTE | 2018-09-12 14:45 | PDOC.CMDIS ---
- If Service Date Differs Date of service: 09/12/18 Time of Service: 14:45 LACE Index Scoring Tool - Questions: Length of Stay (in days): 3 Acuity (Admit via E.D.?): Yes E.D. Visits: 1 - Answers: Total Score: 7 Risk of Readmission: Low Risk Care Management Discharge Reason for Hospitalization: Neutropenic fever Discharge Plan: Suzi will be discharged home with no services. She will follow up with her PCP and Oncologist and discharge plan of care. Her father will provide transportation via private automobile. Patient/Family Education Needs: Discharge plan, limitations, follow up plan of care and Ask Me Three.
== END 2018-09-12 12:45 | disposition home or self-care (01) | DRG 809 ==
LOC: ER 08:26 → MS 09:39
PROVIDERS: Emergency Medicine; Admitting Provider Internal Medicine; Emergency Provider Emergency Medicine; PCP Family Medicine; Visit Provider Internal Medicine
DX: D70.9 Neutropenia, unspecified (principal); C77.3 Secondary and unspecified malignant neoplasm of axilla and upper limb lymph nodes; R50.81 Fever presenting with conditions classified elsewhere; R19.7 Diarrhea, unspecified; T45.1X5A Adverse effect of antineoplastic and immunosuppressive drugs, initial encounter; C50.911 Malignant neoplasm of unspecified site of right female breast; Z95.828 Presence of other vascular implants and grafts; Z17.0 Estrogen receptor positive status [ER+]; Z79.899 Other long term (current) drug therapy
CPT/HCPCS: 36415; 80048; 80053; 81025; 87040; 87077; 87449; 87505; 96361; 96365; 96367; 96375; 99222; 99232; 99239; 99285; J1650; 71046; 81003; 81015; 83605; 83630; 83735; 84703; 85025; 87086; 87186; 87324; 99284; J2405; J3475

== ENCOUNTER 2018-09-14 09:50 | Outpatient (CLI) | payer BC, SELFPAY ==
[2018-09-14 10:26] LABS: Abs Immature Grans 0.01 k/cumm (0.0-0.09); Absolute Basophil Count 0.02 k/cumm (0.0-0.2); Absolute Monocyte Count 0.58 k/cumm (0.11-0.7); Absolute Neutrophil Count 1.05 k/cumm (1.2-6.7); Basophils % 0.6; HCT 36.8 % (36.0-46.0); HGB 12.4 g/dL (12.0-15.5); Immature Grans % 0.3; Lymphocytes % 49.1; Mean Corp. HGB Concentration 33.7 g/dL (32.0-36.0); Mean Corpuscular Hemoglobin 29.1 pg (27.0-33.0); Mean Corpuscular Volume 86.4 fL (80-95); Mean Platelet Volume 9.2 fL (8.0-11.0); Monocytes % 17.8; Neutrophils % 32.2; RBC 4.26 m/cumm (4.00-5.20); RBC Distribution Width 12.4 % (11.7-14.6); White Blood Cell Count 3.26 k/cumm (4.4-10.8)
[2018-09-14 10:50] LABS: Diff Comment PLT Morph Reviewed; Platelet Count 91 x1000/uL (130-400); RBC Morphology Normal
== END 2018-09-14 10:10 ==
PROVIDERS: PCP Family Medicine; Visit Provider Internal Medicine
DX: D70.9 Neutropenia, unspecified (principal); R50.81 Fever presenting with conditions classified elsewhere
CPT/HCPCS: 36415; 85025

== ENCOUNTER 2020-09-07 14:50 | Outpatient (REF) | payer BC, SELFPAY ==
[2020-09-07 13:33] LABS: Abs Immature Grans 0.01 10^3/uL (0.0-0.06); Absolute Basophil Count 0.05 10^3/uL (0.0-0.2); Absolute Eosinophil Count 0.02 10^3/uL (0.0-0.7); Absolute Lymphocyte Count 2.07 10^3/uL (1.2-3.4); Absolute Monocyte Count 0.69 10^3/uL (0.1-0.8); Absolute Neutrophil Count 1.95 10^3/uL (1.2-6.7); Eosinophils % 0.4; HCT 44.2 % (36.0-46.0); HGB 14.7 g/dL (11.2-15.7); Immature Grans % 0.2; Lymphocytes % 43.2; MCH 29.9 pg (27.0-33.0); MCHC 33.3 % (32.0-36.0); MPV 9.7 fL (8.0-11.0); Monocytes % 14.4; Neutrophils % 40.8; Nucleated RBC 0 %; Platelet Count 302 10^3/uL (130-400); RBC 4.91 10^6/uL (3.93-5.22); RDW 12.7 % (11.7-14.6); RDW-SD 42.4 fL; WBC 4.79 10^3/uL (4.4-10.8)
[2020-09-07 13:43] LABS: ALT 39 U/L (14-59); AST 32 U/L (15-37); Albumin 3.4 g/dL (3.4-5.0); Alkaline Phosphatase 80 U/L (46-116); Anion Gap 6.4 mmol/L (3-11); BUN 10 mg/dL (7-18); Bilirubin, Total 0.4 mg/dL (0.2-1.0); CO2 28.6 mmol/L (21.0-32.0); CREATININE 1.2 mg/dL (0.55-1.02); Calcium 8.6 mg/dL (8.5-10.1); Chloride 110 mmol/L (98-107); Estimated GFR 50.28 (mL/min/1.73m2); Glucose 97 mg/dL (74-106); Potassium 4.1 mmol/L (3.5-5.1); Sodium 145 mmol/L (136-145); TSH (W/Ref FT4) 2.32 uIU/mL (0.36-3.74); Total Protein 7.5 g/dL (6.4-8.2)
== END 2020-09-07 14:51 | disposition home or self-care (01) ==
LOC: NCHCN 14:50
PROVIDERS: PCP Nurse Practitioner Family; Visit Provider Family Medicine
DX: R63.5 Abnormal weight gain (principal)
CPT/HCPCS: 80053; 84443; 85025

== ENCOUNTER 2020-09-08 14:23 | Emergency (ER) | payer BC, SELFPAY ==
[2020-09-08] VITALS (16 sets, daily range): BP systolic 115–140; BP diastolic 77–98; PULSE 82–100; RESP 14–24; TEMP 36.6–36.8; O2SAT 96–99
--- NOTE | 2020-09-08 14:30 | DI.US_ITS ---
EXAM: US PELVIS TRANSVAGINAL CLINICAL HISTORY: left lower abdominal pain. TECHNIQUE: Transabdominal pelvic ultrasound was performed using standard protocol. An incomplete tr ansvaginal examination was performed due to patient discomfort. COMPARISON: No exams were available for comparison FINDINGS: KIDNEYS: Kidneys are symmetric in size. No evidence of renal calculi. No evidence of hydronephrosis. No renal mass or cyst identified. UTERUS: Position: Anteverted. Size: 7.5 long by 3.5 AP by 4.5 transverse cm Endometrium: 0.3 cm. Normal for patient's menstrual status. There is an IUD in good position. Myometrium: Unremarkable. Cervix: Unremarkable. OVARIES: No evidence of torsion. Right: 2.9 x 2 x 2.7 cm Cyst or mass: None. Left: 3.1 x 1.3 x 2.7 cm Cyst or mass: There is a 1.4 cm functional cyst. DOPPLER: Color: Symmetric and uniform flow to both ovaries. No hyperemia. Duplex: Normal ovarian arterial waveforms visualized. CUL-DE-SAC: Free fluid: None. Other: None. IMPRESSION: 1. Normal sonographic appearance of the kidneys. 2. Normal-appearing uterus with endometrial stripe within normal limits. There is an IUD in good pos ition. 3. Unremarkable bilateral ovaries. 4. Results of this exam have been verbally communicated with provider. DATA REPOSITORY:
--- NOTE | 2020-09-08 14:34 | W.ED.GENAD ---
Discharge Plan Disposition Patient Disposition: HOME Condition: Good Discharge Details Clinical Impression: Diverticulitis Primary Care Provider: Ashley Arreaga ED Provider: Sherie Trejo Home Meds and New Rx's Prescriptions: New ciprofloxacin HCl 500 mg tablet 500 mg PO BID Qty: 20 RF: 0 metronidazole 500 mg tablet 500 mg PO TID Qty: 30 RF: 0 No Action clonazepam [Klonopin] 0.5 mg tablet 0.5 mg PO DAILY PRN (Reason: panic attack) Qty: 30 RF: 0 tamoxifen 20 mg tablet 20 mg PO DAILY RF: 0 Complete Multivitamin Tablet 1 tab PO DAILY RF: 0 ondansetron HCl [Zofran] 4 mg tablet 4 mg PO Q8H PRN (Reason: nausea and vomiting) Qty: 60 RF: 0 trazodone 50 mg tablet 50 - 100 mg PO QHS Qty: 90 RF: 4 sertraline 50 mg tablet 75 mg PO DAILY Qty: 135 RF: 4 Discharge Instructions Instructions: Abdominal Pain (ED) Additional Instructions: drink at least six to eight glasses of water to stay well hydrated, clear liquid diet for next 1-2 days then advance to soft as tolerated take all medications as prescribe even if you feel better. Referrals: Shi Serrano DO [OSTEOPATHIC DOCTOR] - (7-10 days) Discharge Data Discharge Date/Time-TO BE ENTERED AT DEPARTURE: 09/08/20 17:49 Medical Decision Making <CAMRON Kuar - Last Filed: 09/11/20 08:08> Patient has been normal-appearing ultrasound, her pelvic exam is benign, she has no cervical motion tenderness or adnexal tenderness on exam Swabs are pending, GC chlamydia, and vaginosis panel, no clinical evidence of PID Her CBC is reassuring Her CMP does not show significant acute abnormality She has a negative test TSH is mildly elevated at 4.1, however free T4 is within normal limits She is signed out to Sherie Trejo NP pending CT abdomen and pelvis in stable condition, she has received morphine and is resting comfortably in the room pending CAT scan Differential Diagnosis Differential Diagnosis: Diverticulitis, ovarian torsion, urinary tract infection, PID Medical Records Medical records reviewed: Yes I reviewed the patient's medical records. Lab Data Lab results reviewed: Yes I reviewed the patient's lab results. <Sherie Trejo NP - Last Filed: 09/08/20 20:31> patient with ongoing left sided abdominal pain. vitals are stable and she is able to tolerate PO. Medical Records Medical records reviewed: Yes I reviewed the patient's medical records. Imaging Data Radiologic Study: Imaging: CT Scan Radiologist's impression: PROCEDURE INFORMATION: Exam: CT Abdomen And Pelvis With Contrast Exam date and time: 09/08/2020 3:35 PM Age: 40 years old Clinical indication: Patient HX: Left lower abdominal pain, guarding on exam TECHNIQUE: Imaging protocol: Computed tomography of the abdomen and pelvis with contrast. Radiation optimization: All CT scans at this facility use at least one of these dose optimization techniques: automated exposure control; mA and/or kV adjustment per patient size (includes targeted exams where dose is matched to clinical indication); or iterative reconstruction. Contrast material: VISIPAQUE; Contrast volume: 100 ml; Contrast route: INTRAVENOUS (IV); COMPARISON: US PELVIS TRANSVAGINAL 09/08/2020 3:03 PM FINDINGS: Mediastinal space: Small esophageal hiatal hernia. Liver: Mild diffuse fatty infiltration of liver. Gallbladder and bile ducts: Normal. No calcified stones. No ductal dilation. Pancreas: Normal. No ductal dilation. Spleen: Normal. No splenomegaly. Adrenal glands: Normal. No mass. Kidneys and ureters: Normal. No hydronephrosis. Stomach and bowel: Mild bowel wall thickening and edema in the lower descending colon mild pericolonic soft tissue stranding. This is consistent with low-grade diverticulitis and involves a short segment of colon measuring approximately 5 cm in length.. No obstruction. Appendix: No evidence of appendicitis. Intraperitoneal space: Unremarkable. No free air. No significant fluid collection. Vasculature: Unremarkable. No abdominal aortic aneurysm. Lymph nodes: Unremarkable. No enlarged lymph nodes. Urinary bladder: Unremarkable as visualized. Reproductive: IUD. Bones/joints: Degenerative disc disease at lumbosacral junction. Soft tissues: Unremarkable. IMPRESSION: 1. Lower descending colon low-grade diverticulitis. No fluid collection, free air, nor obstruction. Lab Data Lab results reviewed: Yes I reviewed the patient's lab results. Labs: 09/08/20 15:57 Vaginal Vaginitis Screen - Pending Laboratory Tests Range/Units 09/08/20 09/08/20 09/08/20 14:32 14:41 14:41 WBC (4.4-10.8) 10^3/uL RBC (3.93-5.22) 10^6/uL Hgb (11.2-15.7) g/dL Hct (36.0-46.0) % MCV (80-95) fL MCH (27.0-33.0) pg MCHC (32.0-36.0) % RDW (11.7-14.6) % Plt Count (130-400) 10^3/uL MPV (8.0-11.0) fL Immature Gran % Neutrophils % Lymphocytes % Monocytes % Eosinophils % Basophils % Nucleated RBC % % Absolute Neutrophils (1.2-6.7) 10^3/uL Absolute Lymphocytes (1.2-3.4) 10^3/uL Absolute Monocytes (0.1-0.8) 10^3/uL Absolute Eosinophils (0.0-0.7) 10^3/uL Absolute Basophils (0.0-0.2) 10^3/uL Sodium (136-145) mmol/L 140 Potassium (3.5-5.1) mmol/L 3.5 Chloride (98-107) mmol/L 105 Carbon Dioxide (21.0-32.0) mmol/L 26.5 Anion Gap (3-11) mmol/L 8.5 BUN (7-18) mg/dL 10 Creatinine (0.55-1.02) mg/dL 1.1 H Estimated GFR/1.73 m2 (mL/min/1.73m2) 55.59 Glucose (74-106) mg/dL 92 Calcium (8.5-10.1) mg/dL 9.2 Total Bilirubin (0.2-1.0) mg/dL 0.5 AST (15-37) U/L 25 ALT (14-59) U/L 34 Alkaline Phosphatase (46-116) U/L 86 Total Protein (6.4-8.2) g/dL 7.7 Albumin (3.4-5.0) g/dL 3.5 Lipase (73-393) U/L 77 TSH (0.36-3.74) uIU/mL Free T4 (0.76-1.46) ng/dL Urine Color (Yellow) Yellow Urine Clarity (Clear) Clear Urine pH (5-8) 7.0 Ur Specific [place] (1.005-1.025) 1.015 Urine Protein (Negative) mg/dL Negative Urine Ketones (Negative) mg/dL Negative Urine Blood (Negative) Negative Urine Nitrite (Negative) Negative Urine Bilirubin (Negative) Negative Urine Urobilinogen (Up TO 0.2) EU/dL 0.2 Ur Leukocyte Esterase (Negative) Negative Urine Glucose (Negative) mg/dL Negative Range/Units 09/08/20 09/08/20 09/08/20 14:41 14:41 14:41 WBC (4.4-10.8) 10^3/uL 6.01 RBC (3.93-5.22) 10^6/uL 4.52 Hgb (11.2-15.7) g/dL 13.5 Hct (36.0-46.0) % 39.9 MCV (80-95) fL 88.3 MCH (27.0-33.0) pg 29.9 MCHC (32.0-36.0) % 33.8 RDW (11.7-14.6) % 12.6 Plt Count (130-400) 10^3/uL 259 MPV (8.0-11.0) fL 9.2 Immature Gran % 0.2 Neutrophils % 55.9 Lymphocytes % 32.9 Monocytes % 10.5 Eosinophils % 0.0 Basophils % 0.5 Nucleated RBC % % 0 Absolute Neutrophils (1.2-6.7) 10^3/uL 3.36 Absolute Lymphocytes (1.2-3.4) 10^3/uL 1.98 Absolute Monocytes (0.1-0.8) 10^3/uL 0.63 Absolute Eosinophils (0.0-0.7) 10^3/uL 0.00 Absolute Basophils (0.0-0.2) 10^3/uL 0.03 Sodium (136-145) mmol/L Potassium (3.5-5.1) mmol/L Chloride (98-107) mmol/L Carbon Dioxide (21.0-32.0) mmol/L Anion Gap (3-11) mmol/L BUN (7-18) mg/dL Creatinine (0.55-1.02) mg/dL Estimated GFR/1.73 m2 (mL/min/1.73m2) Glucose (74-106) mg/dL Calcium (8.5-10.1) mg/dL Total Bilirubin (0.2-1.0) mg/dL AST (15-37) U/L ALT (14-59) U/L Alkaline Phosphatase (46-116) U/L Total Protein (6.4-8.2) g/dL Albumin (3.4-5.0) g/dL Lipase (73-393) U/L TSH (0.36-3.74) uIU/mL 4.10 H Free T4 (0.76-1.46) ng/dL 0.88 Urine Color (Yellow) Urine Clarity (Clear) Urine pH (5-8) Ur Specific [place] (1.005-1.025) Urine Protein (Negative) mg/dL Urine Ketones (Negative) mg/dL Urine Blood (Negative) Urine Nitrite (Negative) Urine Bilirubin (Negative) Urine Urobilinogen (Up TO 0.2) EU/dL Ur Leukocyte Esterase (Negative) Urine Glucose (Negative) mg/dL HPI <CAMRON Kaur - Last Filed: 09/11/20 08:08> General Mode of arrival: ambulatory. Date/Time Provider Initiated Documentation: 09/08/20 14:24. Limitations to Documentation: no limitations. Information obtained by: patient. History of Present Illness described as mild, HPI Narrative: This 40-year-old female presents with abdominal pain for the past week. She states that she has had bloating and weight gain for the past several weeks and she actually saw her primary care physician yesterday and they ordered some blood work which has yet to results. She states that her pants are not fitting appropriately. She denies any nausea or vomiting. She does have a remote history of breast cancer for which she received chemotherapy, radiation for. She is not sexually active and has not been scheduled for approximately 6 months. She denies any vaginal discharge. Related Data Home Medications Medication Instructions Recorded Confirmed multivitamin,[id number] 1 tab PO DAILY 06/06/19 09/08/20 tamoxifen 20 mg tablet 20 mg PO DAILY 06/06/19 09/08/20 ondansetron HCl 4 mg tablet 4 mg PO Q8H PRN #60 tab 04/17/20 05/21/20 clonazepam 0.5 mg tablet 0.5 mg PO DAILY PRN #30 tab 05/21/20 05/21/20 sertraline 50 mg tablet 75 mg PO DAILY #135 tab 06/04/20 trazodone 50 mg tablet 50 - 100 mg PO QHS #90 tab 06/04/20 ciprofloxacin HCl 500 mg PO BID #20 tab 09/08/20 metronidazole 500 mg PO TID #30 tab 09/08/20 Previous Rx's Medication Instructions Recorded ondansetron HCl 4 mg tablet 4 mg PO Q8H PRN #60 tab 04/17/20 clonazepam 0.5 mg tablet 0.5 mg PO DAILY PRN #30 tab 05/21/20 sertraline 50 mg tablet 75 mg PO DAILY #135 tab 06/04/20 trazodone 50 mg tablet 50 - 100 mg PO QHS #90 tab 06/04/20 ciprofloxacin HCl 500 mg PO BID #20 tab 09/08/20 metronidazole 500 mg PO TID #30 tab 09/08/20 Allergies Allergy/AdvReac Type Severity Reaction Status Date / Time silver Allergy Intermediate Verified 07/05/19 14:04 [From [employer] Mesh] General Stated Complaint: Abd Prob KRISTOFER: 3 Review of Systems <CAMRON Kaur - Last Filed: 09/11/20 08:08> Narrative: Review of systems negative x7 aside from indicated in HPI PFSH <CAMRON Kaur - Last Filed: 09/11/20 08:08> Medical History (Updated 09/08/20 @ 17:32 by Sherie Trejo NP) Generalized anxiety disorder HER2-positive carcinoma of right breast (~08/2018) IDC and DCIS, ER+, [place]+, HER-2+, +LN, s/p lumpectomy; Undergoing chemo through [facility] [place] Oncology Major depressive disorder Neutropenic fever Family History Mother Mental disorder Father No problems noted. Sister No problems noted. Brother No problems noted. Grandfather No problems noted. Grandfather No problems noted. Grandmother No problems noted. Grandmother No problems noted. Social History Smoking/Tobacco Use Status: Never Smoking risk assessment performed?: Yes Alcohol Intake: never Drug use: Never Substance use type: does not use Do you feel safe at home: Yes Do you feel safe in your relationship?: Yes Exam <CAMRON Kaur - Last Filed: 09/11/20 08:08> Const General: cooperative and comfortable HENMT Other: moist mucous membranes Chest Chest: normal inspection of the chest Resp Effort & Inspection: normal respiratory effort Auscultation: clear to auscultation bilaterally Cardio Rate: regular rate Rhythm: regular rhythm GI Inspection: normal to inspection Palpation: tender Other: guarding left lower quadrant Skin General skin exam: no rashes or lesions noted Neuro General: patient alert and patient oriented x3 Extrem Other: no calf tenderness or swelling appreciated Course <CAMRON Kaur - Last Filed: 09/11/20 08:08> Vital Signs Vital signs: Vital Signs Temperature 36.6 C 09/08/20 14:27 Pulse 100 H 09/08/20 14:27 Respiratory Rate 16 09/08/20 14:27 Blood Pressure 140/98 H 09/08/20 14:27 Pulse Oximetry 96 09/08/20 14:27 Temperature 36.6 C 09/08/20 14:27 Pulse 100 H 09/08/20 14:27 Respiratory Rate 16 09/08/20 14:27 Blood Pressure 140/98 H 09/08/20 14:27 Blood Pressure Position Sitting 09/08/20 14:27 Pulse Oximetry 96 09/08/20 14:27 Oxygen Delivery Method Room Air 09/08/20 14:27 Oxygen Flow Rate 0 09/08/20 14:27 Pain Level 10 09/08/20 14:27 Sign Out <CAMRON Kaur - Last Filed: 09/11/20 08:08> Sign Out Data: Sign Out Comment: pending ct abd/pelvis Last updated by Joanna Thomason PA at 09/08/20 16:23
[2020-09-08 14:53] LABS: Abs Immature Grans 0.01 10^3/uL (0.0-0.06); Absolute Basophil Count 0.03 10^3/uL (0.0-0.2); Absolute Lymphocyte Count 1.98 10^3/uL (1.2-3.4); Absolute Monocyte Count 0.63 10^3/uL (0.1-0.8); Absolute Neutrophil Count 3.36 10^3/uL (1.2-6.7); Basophils % 0.5; HCT 39.9 % (36.0-46.0); HGB 13.5 g/dL (11.2-15.7); Immature Grans % 0.2; Lymphocytes % 32.9; MCH 29.9 pg (27.0-33.0); MCHC 33.8 % (32.0-36.0); MCV 88.3 fL (80-95); MPV 9.2 fL (8.0-11.0); Monocytes % 10.5; Neutrophils % 55.9; Nucleated RBC 0 %; Platelet Count 259 10^3/uL (130-400); RBC 4.52 10^6/uL (3.93-5.22); RDW 12.6 % (11.7-14.6); RDW-SD 40.7 fL; WBC 6.01 10^3/uL (4.4-10.8)
[2020-09-08 15:01] LABS: Bilirubin Negative (Negative); Blood Negative (Negative); Clarity Clear (Clear); Glucose Negative (Negative); Ketones Negative (Negative); Leukocyte Esterase Negative (Negative); Nitrite Negative (Negative); Specific Gravity 1.015 (1.005-1.025); Urobilinogen 0.2 EU/dL (Up TO 0.2)
[2020-09-08 15:02] LABS: Lipase 77 U/L (73-393)
[2020-09-08 15:07] LABS: ALT 34 U/L (14-59); AST 25 U/L (15-37); Albumin 3.5 g/dL (3.4-5.0); Alkaline Phosphatase 86 U/L (46-116); Anion Gap 8.5 mmol/L (3-11); BUN 10 mg/dL (7-18); Bilirubin, Total 0.5 mg/dL (0.2-1.0); CO2 26.5 mmol/L (21.0-32.0); CREATININE 1.1 mg/dL (0.55-1.02); Calcium 9.2 mg/dL (8.5-10.1); Chloride 105 mmol/L (98-107); Estimated GFR 55.59 (mL/min/1.73m2); Glucose 92 mg/dL (74-106); Potassium 3.5 mmol/L (3.5-5.1); Sodium 140 mmol/L (136-145); Total Protein 7.7 g/dL (6.4-8.2)
--- NOTE | 2020-09-08 15:30 | DI.CT_ITS ---
EXAM: CT ABDOMEN PELVIS W CLINICAL HISTORY: left lower abdominal pain, guarding on exam. TECHNIQUE: Imaging Protocol: Axial computed tomography images with coronal and sagittal reformatted images were created and reviewed CONTRAST MATERIAL: Intravenous: Omnipaque 100cc Oral: None COMPARISON: No exams were available for comparison FINDINGS: VISUALIZED LUNG BASES: No nodules nor pleural effusions evident. ABDOMEN: There is no ascites. Small hiatal hernia noted LIVER: There are no focal hepatic lesions evident . GALLBLADDER/BILIARY: No obvious gallbladder pathology. CBD is not dilated. PANCREAS: No evidence of pancreatic mass nor dilatation of the pancreatic duct. SPLEEN: Spleen is not enlarged. No obvious intrasplenic lesions. Splenic and portal veins are paten t. ADRENALS: There are no significant adrenal masses. KIDNEYS:No cysts evident. No solid renal masses. No calculi nor hydronephrosis.. ABDOMINAL AORTA: Abdominal aorta is not enlarged. LYMPH NODES:There is no retroperitineal nor paraaortic adenopathy. ABDOMINAL WALL/GI: No evidence of significant anterior abdominal wall hernia. No bowel obstruction. PELVIS: GI: No evidence of appendicitis.Sigmoid is redundant. Colon to the level of the splenic flexure is c ollapsed. There are diverticuli noted throughout the colon. LYMPH NODES: There is no intrapelvic nor inguinal adenopathy. REPRODUCTIVE: Unit IUD noted in the uterine canal. No abnormal adnexal findings. No free fluid in t he cul-de-sac. URINARY BLADDER: No calculi nor obvious masses evident OSSEOUS: No significant osseous lesions. IMPRESSION: 1. There are diverticula in the colon. Some very mild streaking is noted around the descending colon , possibly significant. Cannot exclude possible very subtle diverticulitis.. No evidence of free ai r. No abscess. There is no gas in the portal venous system. 2. Small hiatal hernia noted. 3. No ascites evident. 4. RADIATION DOSE DELIVERED: 1,010.43mGy.cm Total DLP DATA REPOSITORY: All CT scans at this facility are submitted to the National Radiology Data Registry (NRDR) Dose Index Registry (DIR) with the [employer] (ACR). RADIATION OPTIMIZATION: All CT scans at this facility use at least one of these dose optimization te chniques: automated exposure control; mA and/or kV adjustment per patient size (includes targeted exa ms where dose is matched to clinical indication); or iterative reconstruction.
[2020-09-08 15:39] LABS: FREE T4 0.88 ng/dL (0.76-1.46)
[2020-09-08] MEDS: Normal Saline - Diluent 50 ML VIAL IV (16:54)
--- NOTE | 2020-09-08 17:12 | DI.VRAD_ITS ---
PROCEDURE INFORMATION: Exam: CT Abdomen And Pelvis With Contrast Exam date and time: 09/08/2020 3:35 PM Age: 40 years old Clinical indication: Patient HX: Left lower abdominal pain, guarding on exam TECHNIQUE: Imaging protocol: Computed tomography of the abdomen and pelvis with contrast. Radiation optimization: All CT scans at this facility use at least one of these dose optimization techniques: automated exposure control; mA and/or kV adjustment per patient size (includes targeted exams where dose is matched to clinical indication); or iterative reconstruction. Contrast material: VISIPAQUE; Contrast volume: 100 ml; Contrast route: INTRAVENOUS (IV); COMPARISON: US PELVIS TRANSVAGINAL 09/08/2020 3:03 PM FINDINGS: Mediastinal space: Small esophageal hiatal hernia. Liver: Mild diffuse fatty infiltration of liver. Gallbladder and bile ducts: Normal. No calcified stones. No ductal dilation. Pancreas: Normal. No ductal dilation. Spleen: Normal. No splenomegaly. Adrenal glands: Normal. No mass. Kidneys and ureters: Normal. No hydronephrosis. Stomach and bowel: Mild bowel wall thickening and edema in the lower descending colon mild pericolonic soft tissue stranding. This is consistent with low-grade diverticulitis and involves a short segment of colon measuring approximately 5 cm in length.. No obstruction. Appendix: No evidence of appendicitis. Intraperitoneal space: Unremarkable. No free air. No significant fluid collection. Vasculature: Unremarkable. No abdominal aortic aneurysm. Lymph nodes: Unremarkable. No enlarged lymph nodes. Urinary bladder: Unremarkable as visualized. Reproductive: IUD. Bones/joints: Degenerative disc disease at lumbosacral junction. Soft tissues: Unremarkable. IMPRESSION: 1. Lower descending colon low-grade diverticulitis. No fluid collection, free air, nor obstruction. Dictated and Authenticated by: Niki Saravia MD. Ordering:VANESA Marshall MD
[2020-09-09 12:49] LABS: Chlamydia Result Negative (Negative); GC Result Negative (Negative)
== END 2020-09-08 17:49 | disposition home or self-care (01) ==
PROVIDERS: Physician Assistant; Emergency Provider Nurse Practitioner Acute Care; PCP Nurse Practitioner Family
DX: K57.32 Diverticulitis of large intestine without perforation or abscess without bleeding (principal)
CPT/HCPCS: 36415; 80053; 81025; 83690; 87491; 87591; 96374; 99285; 74177; 76830; 76856; 81003; 84439; 84443; 85025; 87480; 87510; 87660; 99284

== ENCOUNTER 2021-08-09 17:48 | Outpatient (REF) | payer BC, SELFPAY ==
[2021-08-11 12:03] LABS: COVID-19 RT-PCR UVMMC Result Negative (Negative)
== END 2021-08-09 17:49 | disposition home or self-care (01) ==
LOC: LBN 17:48
PROVIDERS: PCP Nurse Practitioner Family; Visit Provider Nurse Practitioner Family
DX: Z20.822 Contact with and (suspected) exposure to COVID-19 (principal); J06.9 Acute upper respiratory infection, unspecified
CPT/HCPCS: U0003

== ENCOUNTER 2022-11-21 20:14 | Emergency (ER) | payer OTHER, SELFPAY ==
[2022-11-21 20:18] VITALS: BP 143/85; PULSE 89; RESP 16; TEMP 36.4; O2SAT 99
--- NOTE | 2022-11-21 21:12 | ED.GENADUL_ITS ---
Discharge Plan Disposition Patient Disposition: Against Medical Advice Discharge Details Clinical Impression: Abdominal bloating Primary Care Provider: Ashley Arreaga ED Provider: Joanna Thomason Home Meds and New Rx's Prescriptions: Continued tamoxifen 20 mg tablet 20 mg PO DAILY Complete Multivitamin Tablet 1 tab PO DAILY valacyclovir 1 gram tablet 2,000 mg PO BID PRN (Reason: cold sores) Qty: 30 0RF Rx Instructions: Take 2 tablets twice a day for 1 day at first onset of symptoms trazodone 50 mg tablet 50 mg PO QHS PRN (Reason: sleep) Qty: 90 0RF Discharge Instructions Additional Instructions: You are leaving our medical recommendation, you have not been fully evaluated, please do be reevaluated at your earliest ability Referrals: Ashley Arreaga, FABIO [Primary Care Provider] - Discharge Data Discharge Date/Time-TO BE ENTERED AT DEPARTURE: 11/21/22 21:21 Medical Decision Making 42-year-old female, alert and oriented, no acute distress with stable vitals, I did recommend labs and CT abdomen and pelvis given her cancer history, she has declined, she feels as though she cannot stay in the emergency for room for a nother 2 hours that she has to work in the morning, I did offer a work note, she is declining, again she is in no distress, her vital stable and she is alert and oriented, she is aware that she has not been evaluated fully in the emergency department and my recommendation is that she have CAT scan, CBC, CMP, lipase, urinalysis, she is aware she is leaving against our medical recommendation at this time HPI General Date/Time Provider Initiated Documentation: 11/21/22 20:26 . HPI Narrative: This 42-year-old female presents with lower abdominal bloating with pressure- like pain for the past 3 weeks, history of diverticulitis, has been taking Gas-X without relief in symptoms. Denies nausea or vomiting. Denies chest pain or shortness of breath. Denies any fever or chills. States she is moving her bowels without difficulty, denies any nausea or vomiting. Denies history of [place] wel obstruction. History of breast cancer, in remission per patient. Related Data Home Medications Medication Instructions Recorded Confirmed multivitamin,[id number] 1 tab PO DAILY 06/06/19 09/18/20 (Complete Multivitamin tablet) tamoxifen 20 mg tablet 20 mg PO DAILY 06/06/19 09/18/20 valacyclovir 1 gram tablet 2,000 mg PO BID PRN cold sores #30 05/12/21 tabs trazodone 50 mg tablet 50 mg PO QHS PRN sleep #90 tabs 03/03/22 Previous Rx's Medication Instructions Recorded valacyclovir 1 gram tablet 2,000 mg PO BID PRN cold sores #30 05/12/21 tabs trazodone 50 mg tablet 50 mg PO QHS PRN sleep #90 tabs 03/03/22 Allergies Allergy/AdvReac Type Severity Reaction Status Date / Time silver Allergy Intermediate Verified 09/18/20 10:55 [From [employer] Mesh] General Stated Complaint: Abd Prob KRISTOFER: 3 PFSH All Active Problems (Updated 11/21/22 @ 21:14 by CAMRON Kaur) Abdominal bloating (Acute) COVID-19 (Acute ~02/19/22) Diverticulitis (Chronic) Major depressive disorder (Chronic) Generalized anxiety disorder (Chronic) HER2-positive carcinoma of right breast (Chronic ~08/2018) IDC and DCIS, ER+, [place]+, HER-2+, +LN, s/p lumpectomy; Undergoing chemo through [facility] [place] Oncology Migraine (Acute) Medical History Generalized anxiety disorder 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 Sister No problems noted. Brother No problems noted. Grandfather No problems noted. Grandfather No problems noted. Grandmother No problems noted. Grandmother No problems noted. Social History Smoking/Tobacco Use Status: Never Smoking risk assessment performed?: Yes Alcohol Intake: never Drug use: Never Substance use type: does not use Housing: apartment Do you feel safe at home: Yes Do you feel safe in your relationship?: Yes Course Vital Signs Vital signs: Vital Signs Temperature 36.4 C L 11/21/22 20:18 Pulse 89 11/21/22 20:18 Respiratory Rate 16 11/21/22 20:18 Blood Pressure 143/85 H 11/21/22 20:18 Pulse Oximetry 99 11/21/22 20:18 Temperature 36.4 C L 11/21/22 20:18 Temperature Source Tympanic 11/21/22 20:18 Pulse 89 11/21/22 20:18 Respiratory Rate 16 11/21/22 20:18 Respiratory Effort Normal 11/21/22 20:21 Blood Pressure 143/85 H 11/21/22 20:18 Blood Pressure Position Sitting 11/21/22 20:18 Pulse Oximetry 99 11/21/22 20:18 Oxygen Delivery Method Room Air 11/21/22 20:18 Oxygen Flow Rate 0 11/21/22 20:18 Pain Level 4 11/21/22 20:18
== END 2022-11-21 21:21 | disposition left against medical advice (07) ==
PROVIDERS: Emergency Provider Physician Assistant; PCP Nurse Practitioner Family
DX: R14.0 Abdominal distension (gaseous) (principal); R10.9 Unspecified abdominal pain
CPT/HCPCS: 99281; 99283

== ENCOUNTER 2022-11-25 10:42 | Outpatient (CLI) | payer OTHER, SELFPAY ==
[2022-11-25 12:17] LABS: Abs Immature Grans 0.01 10^3/uL (0.0-0.06); Absolute Basophil Count 0.03 10^3/uL (0.0-0.2); Absolute Eosinophil Count 0.01 10^3/uL (0.0-0.7); Absolute Lymphocyte Count 2.01 10^3/uL (1.2-3.4); Absolute Monocyte Count 0.57 10^3/uL (0.1-0.8); Absolute Neutrophil Count 2.23 10^3/uL (1.2-6.7); Basophils % 0.6; Eosinophils % 0.2; HGB 14.2 g/dL (11.2-15.7); Immature Grans % 0.2; Lymphocytes % 41.4; MCH 29.9 pg (27.0-33.0); MCV 91 fL (80-95); MPV 9.5 fL (8.0-11.0); Monocytes % 11.7; Neutrophils % 45.9; Platelet Count 196 10^3/uL (130-400); RBC 4.75 10^6/uL (3.93-5.22); RDW 14.3 % (11.7-14.6); RDW-SD 47.2 fL; WBC 4.86 10^3/uL (4.4-10.8)
[2022-11-25 12:33] LABS: Hemoglobin A1C 5.1 % (<5.7)
[2022-11-25 12:43] LABS: ALT 28 U/L (14-59); AST 22 U/L (15-37); Albumin 3.5 g/dL (3.4-5.0); Alkaline Phosphatase 75 U/L (46-116); Anion Gap 7.3 mmol/L (3-11); BUN 11 mg/dL (7-18); Bilirubin, Total 0.6 mg/dL (0.2-1.0); CO2 27.7 mmol/L (21.0-32.0); CREATININE 1.3 mg/dL (0.55-1.02); Calcium 9.4 mg/dL (8.5-10.1); Calculated LDL 69 mg/dL (<100); Chloride 103 mmol/L (98-107); Cholesterol 186 mg/dL (<200); Estimated GFR 53.31 (mL/min/1.73m2); Glucose 93 mg/dL (74-106); HDL Cholesterol 71 mg/dL (40-60); Lipase 24 U/L (16-77); Potassium 4.4 mmol/L (3.5-5.1); Sodium 138 mmol/L (136-145); TSH (W/Ref FT4) 2.95 uIU/mL (0.36-3.74); Total Protein 7.5 g/dL (6.4-8.2); Triglyceride 232 mg/dL (<150)
== END 2022-11-25 10:43 | disposition home or self-care (01) ==
LOC: LOS 10:42
PROVIDERS: PCP Nurse Practitioner Family; Referring Provider Nurse Practitioner Family; Visit Provider Nurse Practitioner Family
DX: Z00.00 Encounter for general adult medical examination without abnormal findings (principal); R10.84 Generalized abdominal pain; R14.0 Abdominal distension (gaseous); F41.1 Generalized anxiety disorder; F32.89 Other specified depressive episodes; R79.89 Other specified abnormal findings of blood chemistry; Z85.3 Personal history of malignant neoplasm of breast
CPT/HCPCS: 36415; 80053; 80061; 83690; 83036; 84443; 85025

== ENCOUNTER 2025-04-03 12:39 | Outpatient (REF) | payer OTHER, SELFPAY | END 2025-04-03 12:40 | disposition home or self-care (01) | LOC: LBN 12:39 | PROVIDERS: PCP Nurse Practitioner Family; Visit Provider Physician Assistant Medical | DX: J02.9 Acute pharyngitis, unspecified (principal) | CPT/HCPCS: 87070 ==